=== PATIENT | female | born 1960 | race Caucasian/White ===

== ENCOUNTER 2017-10-14 02:31 | Inpatient (IN) | payer SELFPAY ==
[2017-10-14] VITALS (7 sets, daily range): BP systolic 105–182; BP diastolic 81–119; PULSE 61–74; RESP 18–20; TEMP 36.3–36.9; O2SAT 95–98; BMI 32.8
--- NOTE | 2017-10-14 02:40 | XR_ITS ---
XR chest 2V HISTORY: ITS.REASON: SOA ORDERING PHYSICIAN: Kingsley Stinson MD PATIENT AGE: 57 years COMPARISON: None available FINDINGS: Mild cardiomegaly without failure. No lobar consolidation or collapse. No acute bony anomalies. There are mild degenerative changes in the thoracic spine. IMPRESSION: Mild cardiomegaly otherwise negative
[2017-10-14 02:57] LABS: Basophils # 0.1 K/mm3 (0-0.2); Eosinophils # 0.3 K/mm3 (0.0-0.4); Eosinophils % 4.4 % (0.1-12.0); Hematocrit 45.6 % (37.0-47.0); Lymphocytes # 2.8 K/mm3 (0.7-4.5); Lymphocytes % 36.8 K/mm3 (10-50); Mean Corpuscular Hemoglobin 30.9 pg (27.0-31.2); Mean Corpuscular Volume 93.6 fl (81-99); Mean Platelet Volume 7.6 fl (7.4-10.4); Monocytes # 0.3 K/mm3 (0.1-1.0); Monocytes % 4.1 % (1.7-9.3); Neutrophils # 4.1 K/mm3 (1.8-7.8); Neutrophils % 53.6 % (37.0-80.0); Platelet Count 278 K/mm3 (142-424); Red Blood Count 4.87 M/mm3 (4.20-5.40); Red Cell Distribution Width 14.6 % (11.5-17.5); White Blood Count 7.6 K/mm3 (4.8-10.8)
[2017-10-14 03:20] LABS: Microscopic, Urine URINE MICROSCOPIC (MICROSCOPIC)
[2017-10-14 03:22] LABS: Appearance,Urine CLEAR (Clear); Bilirubin,Urine Negative (Negative); Blood, Urine Negative (Negative); Color,Urine YELLOW (Yellow); Glucose,Urine (UA) Negative (Negative); Ketones,Urine Negative (Negative); Leukocyte Esterase,Urine Negative (Negative); Nitrate,Urine Negative (Negative); PH,Urine 6.5 (5.0-8.5); Protein,Urine Negative (Negative); Urobilinogen,Urine 0.2 EU/dl (0.2)
[2017-10-14 03:24] LABS: Alanine Aminotransferase 71 U/L (12-78); Albumin Level 4.2 gm/dL (3.4-5.0); Albumin/Globulin Ratio 1.3 (1.1-1.8); Alkaline Phosphatase 108 U/L (46-116); Anion Gap 11.1 mEq/L (5-15); Aspartate Amino Transferase 78 U/L (15-37); Bilirubin,Total 0.4 mg/dL (0.2-1.0); Blood Urea Nitrogen 13 mg/dL (7-18); Calcium 8.7 mg/dL (8.5-10.1); Carbon Dioxide 29 mmol/L (21.0-32.0); Chloride 101 mmol/L (98-107); Creatinine Clearance Estimated 79 mL/min (0-300); Creatinine,Serum 1.18 mg/dL (0.55-1.02); Estimated Glomerular Filt Rate 47 ml/min (>60); GFR (African American) 57 ML/MIN (>60); Globulin 3.3 gm/dl (1.3-3.2); Glucose 104 mg/dL (74-106); Potassium 3.1 mmoL/L (3.5-5.1); Sodium 138 mmol/L (136-145); Total Protein,Serum 7.5 gm/dL (6.4-8.2); Troponin I < 0.02 ng/ml (0.00-0.06)
[2017-10-14 03:26] LABS: CKMB Relative Index 0.8 U/L (0-4.0); Creatine Kinase 2585 U/L (26-192)
[2017-10-14 03:28] LABS: Creatine Kinase MB 21.9 mg/ml (0.0-3.6)
--- NOTE | 2017-10-14 03:28 | PC.NURSE ---
LAB CALLED WITH CRITICAL RESULT, CK 1136. ADVISED.
[2017-10-14 03:39] LABS: WBC,Urine Occasional #/hpf (0-3)
[2017-10-14 03:40] LABS: Amorphous Sediment,Urine Trace /lpf
--- NOTE | 2017-10-14 03:43 | HMH.EDSOB ---
ED Disposition Clinical Impression: Hyperaldosteronism, Elevated CPK, Hypokalemia Hypothyroidism Qualifiers: Hypothyroidism type: unspecified Qualified Code(s): E03.9 - Hypothyroidism, unspecified Hypertension Qualifiers: Hypertension type: secondary to endocrine disorders Qualified Code(s): I15.2 - Hypertension secondary to endocrine disorders Disposition: Admitted As Inpatient Condition on Discharge: [facility] - Critical Care Critical Care Time: No Attestation: On 10/14/17, the high probability of a clinically significant, sudden or life threatening deterioration of the following system(s) required my full and direct attention, intervention and personal management. The time I documented below is in addition to time spent performing reported procedures but includes the following listed in this critical care notation. Medical Decision Making - Medical Records Medical records reviewed: Yes: I reviewed the patient's medical records. Vital Signs: 10/14/17 02:31 10/14/17 03:35 Temperature 97.8 F Temperature Source Oral Pulse Rate [Right Brachial] 74 68 Respiratory Rate 18 20 Blood Pressure [Right Arm] 182/119 151/108 Blood Pressure Mean [Right Arm] 140 122 Blood Pressure Source [Right Arm] Automatic Cuff Automatic Cuff Blood Pressure Position [Right Arm] Supine Sitting 02 Sat by Pulse Oximetry 98 97 Oxygen Delivery Method Room Air Room Air - Lab Data Lab results reviewed: Yes: I reviewed the patient's lab results. Lab Results 10/14/17 02:45: WBC 7.6, RBC 4.87, Hgb 15.0, Hct 45.6, MCV 93.6, MCH 30.9, MCHC 33.0, RDW 14.6, Plt Count 278, MPV 7.6, Neut % (Auto) 53.6, Lymph % (Auto) 36.8, [place] % (Auto) 4.1, Eos % (Auto) 4.4, Baso % (Auto) 1.0, Neut # (Auto) 4.1, Lymph # (Auto) 2.8, [place] # (Auto) 0.3, Eos # (Auto) 0.3, Baso # (Auto) 0.1 10/14/17 02:45: Sodium 138, Potassium 3.1 L, Chloride 101, Carbon Dioxide 29, Anion Gap 11.1, BUN 13, Creatinine 1.18 H, Estimated Creat Clear 79, Estimated GFR 47 L, Est GFR ( Amer) 57 L, Glucose 104, Calcium 8.7, Total Bilirubin 0.4, AST 78 H, ALT 71, Alkaline Phosphatase 108, Total Creatine Kinase 2585 H*, CK-MB (CK-2) 21.9 H*, CK-MB (CK-2) Rel Index 0.8, Troponin I < 0.02, Total Protein 7.5, Albumin 4.2, Globulin 3.3 H, Albumin/Globulin Ratio 1.3, TSH 125.01 H 10/14/17 02:45: B-Natriuretic Peptide 12 10/14/17 02:45: ESR 48 H 10/14/17 02:45: C-Reactive Protein < 0.2 10/14/17 02:45: TSH 110.77 H, Thyroxine (T4) < 0.5 L 10/14/17 03:10: Urine Color Yellow, Urine Appearance Clear, Urine pH 6.5, Ur Specific [place] 1.020, Urine Protein Negative, Urine Glucose (UA) Negative, Urine Ketones Negative, Urine Blood Negative, Urine Nitrate Negative, Urine Bilirubin Negative, Urine Urobilinogen 0.2, Ur Leukocyte Esterase Negative, Urine WBC Occasional, Amorphous Sediment Trace Result diagrams: 10/14/17 02:45 10/14/17 02:45 Orders (Tests/Meds): ED MEDICATIONS Generic Name Dose Route Start Last Admin Trade Name Freq PRN Reason Stop Dose Admin Levothyroxine Sodium 200 mcg 10/14/17 07:00 Synthroid 100mcg (0.1mg) Tablet PO 11/13/17 06:59 DAILYDM ANDREW Discontinued Medications Generic Name Dose Route Start Last Admin Trade Name Freq PRN Reason Stop Dose Admin Clonidine HCl 0.1 mg 10/14/17 05:08 Clonidine 0.1mg Tablet PO 10/14/17 05:09 ONCE ONE ORDERS Category Date Time Status Chest XR 2 view (NOT portable) [XR chest 2V] Stat Exams 10/14/17 02:40 Taken Aldosterone Stat Lab 10/14/17 04:53 Ordered Magnesium Stat Lab 10/14/17 02:45 Received Renin Stat Lab 10/14/17 04:53 Ordered - Radiology Data #1 Image(s): Chest Image Reviewed: Yes I reviewed the patient's radiology image Preliminary Findings: Normal/NAD - ECG Data Tracing #1 I reviewed this ECG and interpreted as documented below: Ischemic changes: non-specific ST-T wave changes - Physician Consults Physician Consulted: jesse Reason -: Admission - Neo
[2017-10-14 03:49] LABS: Thyroid Stimulating Hormone 125.01 uIU/ml (0.358-3.740)
[2017-10-14 04:00] LABS: C-Reactive Protein < 0.2 mg/L (0.0-0.9)
[2017-10-14 04:36] LABS: Erythrocyte Sedimentation Rate 48 mm/hr (0-30)
[2017-10-14 04:45] LABS: T4 (Thyroxine) < 0.5 ug/dl (4.7-13.3); Thyroid Stimulating Hormone 110.77 uIU/ml (0.358-3.740)
[2017-10-14 06:37] LABS: Chol/HDL Ratio 5.2 (1-3.5); Cholesterol 345 mg/dL (140-200); HDL Cholesterol 66 mg/dL (29-89); LDL Cholesterol 255 mg/dL (0-130); Phosphorous 3.3 mg/dL (2.4-4.9); Triglycerides 119 mg/dL (30-200); VLDL Cholesterol 24 mg/dL (0-40)
--- NOTE | 2017-10-14 10:46 | HMH.PHAVTE ---
[facility] Pharmacy VTE Monitoring - Patient Demographics Admission date: 10/14/17 Report Date: 10/14/17 Time: 10:47 Allergies/Adverse Reactions: Patient Allergies NO KNOWN ALLERGIES - NKA Allergy (Unknown, Uncoded 09/05/17 15:21) Height: 1.73 m Weight: 97.976 kg Patient Problems: Current Active Problems Hypothyroidism (Acute) Hyperaldosteronism (Acute) Hypertension (Acute) Elevated CPK (Acute) Hypokalemia (Acute) - VTE Risk Labs: VTE Related Lab Results Hgb 15.0 g/dL (12.2-16.2) 10/14/17 02:45 Hct 45.6 % (37.0-47.0) 10/14/17 02:45 Plt Count 278 K/mm3 (142-424) 10/14/17 02:45 BUN 13 mg/dL (7-18) 10/14/17 02:45 Creatinine 1.18 mg/dL (0.55-1.02) H 10/14/17 02:45 Estimated Creat Clear 79 mL/min (0-300) 10/14/17 02:45 Was VTE Risk Assessment Performed: Yes VTE Score: 4 VTE Risk Level: Low Risk - Prophylaxis VTE Prophylaxis Ordered?: Yes Types of VTE Prophylaxis: TEDS Knee High Location of Applied Device: Right Leg, Left Leg
--- NOTE | 2017-10-14 14:29 | HMH.HP ---
*Admission Date: 10/14/17 *Chief complaint: Weakness *History of present illness: 57 year old female presented to [facility] ER last night complaining of a 1 week history of progressively worse weakness and shortness of breath. She has a history of adrenal adenomas with hyperaldosteronism and hypothyroidism. Patient states she moved to [place] from [place] about 6 weeks ago and has been out of some of her medications for a few weeks. She denies chest pain and extremity edema. [facility] History Medical History: Reports:: Congestive Heart Failure ( Broken heart syndrome 2016 cath reportedly showed normal coronaries), Hypertension Denies:: Atherosclerotic Heart Disease, Diabetes Mellitus Type 2 Other Medical History: Reports: Hypothyroidism, Other (Hyperaldosteroneism, adrenal adenoma) - *Social History Smoking Status: Current every day smoker Tobacco Type: cigarettes Alcohol Intake: never Substance Use Type: other (history of narcotic addiction, none taken recently) Occupational Status: disabled - Psychiatric History Expresses thoughts of harming self/others: None Suicide Plan Description: No Plan *Family Hx:: No significant family history Review of Systems - Constitutional Reports fatigue - Eyes Denies blurry vision - ENT Denies bleeding gums, Denies change in voice - *Cardiovascular Denies chest pain - *Respiratory Denies cough - *Gastrointestinal Denies nausea, Denies vomiting - *Genitourinary Denies abnormal vaginal bleeding - *Musculoskeletal Denies joint pain - Integumentary/Breasts Denies rash - *Neurologic Denies dizziness, Denies seizure-like activity - Psychiatric Denies mood swings, Denies panic attacks - Endocrine Denies excessive sweating - Hematologic/Lymphatic Denies easy bleeding Meds Home Medications Medication Instructions Recorded Confirmed Type Amlodipine Besylate [Norvasc 5mg 5 mg PO DAILY 10/14/17 10/14/17 History tablet] Hydralazine HCl [Hydralazine HCl 25 mg PO TID 10/14/17 10/14/17 History 25mg Tablet] Ibuprofen [Ibuprofen 600mg Tab] 600 mg PO TID PRN 10/14/17 10/14/17 History Levothyroxine Sodium 175 mcg PO DAILY 10/14/17 10/14/17 History [Levothyroxine 175mcg (0.175mg) Tab] Potassium Chloride [Klor-Con 20 20 meq PO QID 10/14/17 10/14/17 History mEq Packet] Spironolactone [Spironolactone 25 mg PO DAILY 10/14/17 10/14/17 History 25mg Tab] cloNIDine HCl [cloNIDine 0.2mg 0.2 mg PO BID 10/14/17 10/14/17 History Tablet] Allergies Allergy/AdvReac Type Severity Reaction Status Date / Time NO KNOWN ALLERGIES - NKA Allergy Unknown Uncoded 09/05/17 15:21 Exam Vital signs and Labs for Last 24 Hours: Temp Pulse Resp BP Pulse Ox 98.4 F 64 20 124/89 98 10/14/17 07:43 10/14/17 07:43 10/14/17 07:43 10/14/17 07:43 10/14/17 07:43 Vital Signs Temp Pulse Resp BP Pulse Ox 10/14/17 07:43 98.4 F 64 20 124/89 98 10/14/17 06:56 97 10/14/17 03:35 68 20 151/108 97 10/14/17 02:31 97.8 F 74 18 182/119 98 Intake and Output 10/14/17 10/14/17 10/14/17 03:59 11:59 19:59 Other: Weight 216 lb 216 lb I & O for Last 24 hours: Intake & Output 10/12/17 10/13/17 10/14/17 10/15/17 11:59 11:59 11:59 11:59 Weight 216 lb - Constitutional no acute distress - *Routine HEENT Exam Head: Present: normocephalic Eye: Present: PERRL ENT: Present: mucous membranes moist - *Routine Neck Exam Present: supple, full ROM - *Routine Respiratory Exam Present: CTA bilaterally - *Routine Cardiovascular Exam Present: RRR - *Routine Abdominal Exam Present: soft, normoactive bowel sounds. Absent: tenderness - *Routine Extremities Exam Present: pulses intact H&P: Result - Labs Labs: Laboratory Results - last 24 hr 10/14/17 02:45: WBC 7.6, RBC 4.87, Hgb 15.0, Hct 45.6, MCV 93.6, MCH 30.9, MCHC 33.0, RDW 14.6, Plt Count 278, MPV 7.6, Neut % (Auto) 53.6, Lymph % (Auto) 36.8,
--- NOTE | 2017-10-14 14:32 | P.HP_ITS ---
*Admission Date: 10/14/17 *Chief complaint: Weakness *History of present illness: 57 year old female presented to [facility] ER last night complaining of a 1 week history of progressively worse weakness and shortness of breath. She has a history of adrenal adenomas with hyperaldosteronism and hypothyroidism. Patient states she moved to [place] from [place] about 6 weeks ago and has been out of some of her medications for a few weeks. She denies chest pain and extremity edema. [facility] History Medical History: Reports:: Congestive Heart Failure ( Broken heart syndrome 2016 cath reportedly showed normal coronaries), Hypertension Denies:: Atherosclerotic Heart Disease, Diabetes Mellitus Type 2 Other Medical History: Reports: Hypothyroidism, Other (Hyperaldosteroneism, adrenal adenoma) - *Social History Smoking Status: Current every day smoker Tobacco Type: cigarettes Alcohol Intake: never Substance Use Type: other (history of narcotic addiction, none taken recently) Occupational Status: disabled - Psychiatric History Expresses thoughts of harming self/others: None Suicide Plan Description: No Plan *Family Hx:: No significant family history Review of Systems - Constitutional Reports fatigue - Eyes Denies blurry vision - ENT Denies bleeding gums, Denies change in voice - *Cardiovascular Denies chest pain - *Respiratory Denies cough - *Gastrointestinal Denies nausea, Denies vomiting - *Genitourinary Denies abnormal vaginal bleeding - *Musculoskeletal Denies joint pain - Integumentary/Breasts Denies rash - *Neurologic Denies dizziness, Denies seizure-like activity - Psychiatric Denies mood swings, Denies panic attacks - Endocrine Denies excessive sweating - Hematologic/Lymphatic Denies easy bleeding Meds Home Medications Medication Instructions Recorded Confirmed Type Amlodipine Besylate [Norvasc 5mg 5 mg PO DAILY 10/14/17 10/14/17 History tablet] Hydralazine HCl [Hydralazine HCl 25 mg PO TID 10/14/17 10/14/17 History 25mg Tablet] Ibuprofen [Ibuprofen 600mg Tab] 600 mg PO TID PRN 10/14/17 10/14/17 History Levothyroxine Sodium 175 mcg PO DAILY 10/14/17 10/14/17 History [Levothyroxine 175mcg (0.175mg) Tab] Potassium Chloride [Klor-Con 20 20 meq PO QID 10/14/17 10/14/17 History mEq Packet] Spironolactone [Spironolactone 25 mg PO DAILY 10/14/17 10/14/17 History 25mg Tab] cloNIDine HCl [cloNIDine 0.2mg 0.2 mg PO BID 10/14/17 10/14/17 History Tablet] Allergies Allergy/AdvReac Type Severity Reaction Status Date / Time NO KNOWN ALLERGIES - NKA Allergy Unknown Uncoded 09/05/17 15:21 Exam Vital signs and Labs for Last 24 Hours: Temp Pulse Resp BP Pulse Ox 98.4 F 64 20 124/89 98 10/14/17 07:43 10/14/17 07:43 10/14/17 07:43 10/14/17 07:43 10/14/17 07:43 Vital Signs Temp Pulse Resp BP Pulse Ox 10/14/17 07:43 98.4 F 64 20 124/89 98 10/14/17 06:56 97 10/14/17 03:35 68 20 151/108 97 10/14/17 02:31 97.8 F 74 18 182/119 98 Intake and Output 10/14/17 10/14/17 10/14/17 03:59 11:59 19:59 Other: Weight 216 lb 216 lb I & O for Last 24 hours: Intake & Output 10/12/17 0
--- NOTE | 2017-10-15 03:07 | PC.NURSE ---
no changes noted from previous assessment,pt has slept intervals this shift, when pt is awake she appears very anxious and is often crying, breath sounds are diminished in the bases, otherwise clear, pt has maintained O2 sats above 90 on room air, pt states she is unable to catch her breath despite attempting to wear the nasal cannula, pt takes O2 on and off, bowel sounds are active x4, vss, no acute distress noted at this time, call light in reach, will continue to monitor.
[2017-10-15 04:00] VITALS: BP 106/64; PULSE 63; RESP 18; TEMP 36.7; O2SAT 96
[2017-10-15 07:18] LABS: Basophils # 0.1 K/mm3 (0-0.2); Basophils % 1.2 % (0.1-2.0); Eosinophils # 0.3 K/mm3 (0.0-0.4); Eosinophils % 4.2 % (0.1-12.0); Hemoglobin 12.9 g/dL (12.2-16.2); Lymphocytes # 2.5 K/mm3 (0.7-4.5); Lymphocytes % 41.2 K/mm3 (10-50); Mean Corpuscular Volume 93.9 fl (81-99); Mean Platelet Volume 8.2 fl (7.4-10.4); Monocytes # 0.3 K/mm3 (0.1-1.0); Monocytes % 4.1 % (1.7-9.3); Neutrophils % 49.3 % (37.0-80.0); Platelet Count 253 K/mm3 (142-424); Red Blood Count 4.16 M/mm3 (4.20-5.40); Red Cell Distribution Width 14.5 % (11.5-17.5); White Blood Count 6.1 K/mm3 (4.8-10.8)
[2017-10-15 07:22] LABS: Anion Gap 12.6 mEq/L (5-15); Blood Urea Nitrogen 13 mg/dL (7-18); Carbon Dioxide 26 mmol/L (21.0-32.0); Chloride 106 mmol/L (98-107); Creatinine Clearance Estimated 84 mL/min (0-300); Creatinine,Serum 1.11 mg/dL (0.55-1.02); Estimated Glomerular Filt Rate 50 ml/min (>60); GFR (African American) 61 ML/MIN (>60); Glucose 112 mg/dL (74-106); Potassium 3.6 mmoL/L (3.5-5.1); Sodium 141 mmol/L (136-145)
[2017-10-15 07:57] VITALS: BP 120/84; PULSE 60; RESP 20; TEMP 36.9; O2SAT 97
--- NOTE | 2017-10-15 08:30 | P.PN_ITS ---
Internal Medicine - PN: Subj *Date: 10/15/17 *Time: 08:27 Interval history: Patient with no new complaints today, she is still anxious about her health conditions and social situation. Exam Vital signs and Labs for Last 24 Hours: Temp Pulse Resp BP Pulse Ox 98.5 F 60 20 120/84 97 10/15/17 07:57 10/15/17 07:57 10/15/17 07:57 10/15/17 07:57 10/15/17 07:57 Laboratory Results - last 24 hr 10/15/17 06:35: WBC 6.1, RBC 4.16 L, Hgb 12.9, Hct 39.0, MCV 93.9, MCH 31.0, MCHC 33.0, RDW 14.5, Plt Count 253, MPV 8.2, Neut % (Auto) 49.3, Lymph % (Auto) 41.2, [place] % (Auto) 4.1, Eos % (Auto) 4.2, Baso % (Auto) 1.2, Neut # (Auto) 3.0 , Lymph # (Auto) 2.5, [place] # (Auto) 0.3, Eos # (Auto) 0.3, Baso # (Auto) 0.1 10/15/17 06:35: Sodium 141, Potassium 3.6, Chloride 106, Carbon Dioxide 26, Anion Gap 12.6, BUN 13, Creatinine 1.11 H, Estimated Creat Clear 84, Estimated GFR 50 L, Est GFR ( Amer) 61, Glucose 112 H Vital Signs Temp Pulse Pulse Resp BP Pulse Ox 10/15/17 07:57 98.5 F 60 20 120/84 97 10/15/17 04:00 98.1 F 63 18 106/64 96 10/14/17 20:00 97.3 F L 66 20 116/88 95 10/14/17 15:24 97.8 F 61 20 105/81 98 10/14/17 12:00 70 Intake and Output 10/14/17 10/15/17 10/15/17 19:59 03:59 11:59 Intake Total 1480 / 1480 240 / 240 Balance 1480 / 1480 240 / 240 Intake: Intake, Oral Amount 1480 / 1480 240 / 240 Other: Number of Voids 4 Number of Unmeasured Voids 1 I & O for Last 24 hours: Intake & Output 10/12/17 10/13/17 10/14/17 10/15/17 11:59 11:59 11:59 11:59 Intake Total 1720 / 1720 Balance 1720 / 1720 Weight 216 lb - Constitutional no acute distress - *Routine Respiratory Exam Present: CTA bilaterally - *Routine Cardiovascular Exam Present: RRR - *Routine Extremities Exam Absent: edema Assessment and Plan (1) Hypothyroidism Current visit: Yes Status: Acute Qualifiers: Hypothyroidism type: unspecified Qualified Code(s): E03.9 - Hypothyroidism , unspecified Category: Medical Code(s): E03.9 - Hypothyroidism, unspecified (2) Hyperaldosteronism Current visit: Yes Status: Acute Category: Medical Code(s): E26.9 - Hyperaldosteronism, unspecified (3) Hypertension Current visit: Yes Status: Acute Qualifiers: Hypertension type: secondary to endocrine disorders Qualified Code(s): I15.2 - Hypertension secondary to endocrine disorders Category: Medical Code(s): I10 - Essential (primary) hypertension (4) Hyperlipidemia Current visit: Yes Status: Acute Category: Medical Code(s): E78.5 - Hyperlipidemia, unspecified (5) Non-compliance Current visit: Yes Status: Acute Category: Medical Code(s): Z91.19 - Patient's noncompliance with other medical treatment and regimen (6) Elevated CPK Current visit: Yes Status: Acute Category: Medical Code(s): R74.8 - Abnormal levels of other serum enzymes (7) Hypokalemia Current visit: Yes Status: Resolved Category: Medical Code(s): E87.6 - Hypokalemia - Assessment and plan all Dx Assessment and Plan for all problems:: Plan discharge today. Patient to f/u in office in 2 weeks, encouraged her to take her medications everyday.
--- NOTE | 2017-10-16 14:35 | HMH.DCSUM ---
General - General Admission date: 10/14/17 Discharge date: 10/15/17 HPI HPI: 57 year old female presented to [facility] ER last night complaining of a 1 week history of progressively worse weakness and shortness of breath. She has a history of adrenal adenomas with hyperaldosteronism and hypothyroidism. Patient states she moved to [place] from [place] about 6 weeks ago and has been out of some of her medications for a few weeks. She denies chest pain and extremity edema. Objective Vital signs: Temp Pulse Resp BP Pulse Ox 98.5 F 60 20 120/84 97 10/15/17 07:57 10/15/17 07:57 10/15/17 07:57 10/15/17 07:57 10/15/17 07:57 Narrative: - Constitutional no acute distress - *Routine HEENT Exam Head: Present: normocephalic Eye: Present: PERRL ENT: Present: mucous membranes moist - *Routine Neck Exam Present: supple, full ROM - *Routine Respiratory Exam Present: CTA bilaterally - *Routine Cardiovascular Exam Present: RRR - *Routine Abdominal Exam Present: soft, normoactive bowel sounds. Absent: tenderness - *Routine Extremities Exam Present: pulses intact Hospital Course Hospital Course: Her potassium was low and was replaced. Her Levothyroxine and Spironolactone were resumed. The patient improved, as did her labs. She was stable to be discharged home and will f/u in the office of A in 2 weeks. She was encouraged to take her medications daily. DS: Diagnosis - Discharge Diagnosis (1) Elevated CPK Status: Acute (2) Hyperaldosteronism Status: Acute (3) Hyperlipidemia Status: Acute (4) Hypertension Status: Acute (5) Hypothyroidism Status: Acute (6) Non-compliance Status: Acute (7) Hypokalemia Status: Resolved Meds Home Medications Medication Instructions Recorded Confirmed Type Amlodipine Besylate [Norvasc 5mg 5 mg PO DAILY 10/14/17 10/14/17 History tablet] Hydralazine HCl [Hydralazine HCl 25 mg PO TID 10/14/17 10/14/17 History 25mg Tablet] Ibuprofen [Ibuprofen 600mg Tab] 600 mg PO TID PRN 10/14/17 10/14/17 History Potassium Chloride [Klor-Con 20 20 meq PO QID 10/14/17 10/14/17 History mEq Packet] Spironolactone [Spironolactone 25 mg PO DAILY 10/14/17 10/14/17 History 25mg Tab] cloNIDine HCl [cloNIDine 0.2mg 0.2 mg PO BID 10/14/17 10/14/17 History Tablet] Allergies Allergy/AdvReac Type Severity Reaction Status Date / Time NO KNOWN ALLERGIES - NKA Allergy Unknown Uncoded 09/05/17 15:21 Discharge Plan - Patient Discharge Instructions ACTIVITY: Continue current activity DIET: continue same diet - Follow up Plan Follow up with: Epi Gonzalez MD [Staff Physician] - 2 weeks Disposition: Home, Self-Prison Medications: Home Medications Medication Instructions Recorded Confirmed Type Amlodipine Besylate [Norvasc 5mg 5 mg PO DAILY 10/14/17 10/14/17 History tablet] Hydralazine HCl [Hydralazine HCl 25 mg PO TID 10/14/17 10/14/17 History 25mg Tablet] Ibuprofen [Ibuprofen 600mg Tab] 600 mg PO TID PRN 10/14/17 10/14/17 History Potassium Chloride [Klor-Con 20 20 meq PO QID 10/14/17 10/14/17 History mEq Packet] Spironolactone [Spironolactone 25 mg PO DAILY 10/14/17 10/14/17 History 25mg Tab] cloNIDine HCl [cloNIDine 0.2mg 0.2 mg PO BID 10/14/17 10/14/17 History Tablet] Prescriptions/Medication Reconciliation: New hydrOXYzine HCl [Hydroxyzine HCl] 25 mg PO Q6HP PRN #30 tab PRN Reason: Anxiety Continue Spironolactone [Spironolactone 25mg Tab] 25 mg PO DAILY Amlodipine Besylate [Norvasc 5mg tablet] 5 mg PO DAILY Hydralazine HCl [Hydralazine HCl 25mg Tablet] 25 mg PO TID cloNIDine HCl [cloNIDine 0.2mg Tablet] 0.2 mg PO BID Ibuprofen [Ibuprofen 600mg Tab] 600 mg PO TID PRN PRN Reason: PAIN Potassium Chloride [Klor-Con 20 mEq Packet] 20 meq PO QID Changed Levothyroxine Sodium [Levothyroxine 175mcg (0.175mg) Tab] 200 mcg PO DAILY #30 tab
--- NOTE | 2017-10-16 14:39 | P.DS_ITS ---
General - General Admission date: 10/14/17 Discharge date: 10/15/17 HPI HPI: 57 year old female presented to [facility] ER last night complaining of a 1 week history of progressively worse weakness and shortness of breath. She has a history of adrenal adenomas with hyperaldosteronism and hypothyroidism. Patient states she moved to [place] from [place] about 6 weeks ago and has been out of some of her medications for a few weeks. She denies chest pain and extremity edema. Objective Vital signs: Temp Pulse Resp BP Pulse Ox 98.5 F 60 20 120/84 97 10/15/17 07:57 10/15/17 07:57 10/15/17 07:57 10/15/17 07:57 10/15/17 07:57 Narrative: - Constitutional no acute distress - *Routine HEENT Exam Head: Present: normocephalic Eye: Present: PERRL ENT: Present: mucous membranes moist - *Routine Neck Exam Present: supple, full ROM - *Routine Respiratory Exam Present: CTA bilaterally - *Routine Cardiovascular Exam Present: RRR - *Routine Abdominal Exam Present: soft, normoactive bowel sounds. Absent: tenderness - *Routine Extremities Exam Present: pulses intact Hospital Course Hospital Course: Her potassium was low and was replaced. Her Levothyroxine and Spironolactone were resumed. The patient improved, as did her labs. She was stable to be discharged home and will f/u in the office of A in 2 weeks. She was encouraged to take her medications daily. DS: Diagnosis - Discharge Diagnosis (1) Elevated CPK Status: Acute (2) Hyperaldosteronism Status: Acute (3) Hyperlipidemia Status: Acute (4) Hypertension Status: Acute (5) Hypothyroidism Status: Acute (6) Non-compliance Status: Acute (7) Hypokalemia Status: Resolved Meds Home Medications Medication Instructions Recorded Confirmed Type Amlodipine Besylate [Norvasc 5mg 5 mg PO DAILY 10/14/17 10/14/17 History tablet] Hydralazine HCl [Hydralazine HCl 25 mg PO TID 10/14/17 10/14/17 History 25mg Tablet] Ibuprofen [Ibuprofen 600mg Tab] 600 mg PO TID PRN 10/14/17 10/14/17 History Potassium Chloride [Klor-Con 20 20 meq PO QID 10/14/17 10/14/17 History mEq Packet] Spironolactone [Spironolactone 25 mg PO DAILY 10/14/17 10/14/17 History 25mg Tab] cloNIDine HCl [cloNIDine 0.2mg 0.2 mg PO BID 10/14/17 10/14/17 History Tablet] Allergies Allergy/AdvReac Type Severity Reaction Status Date / Time NO KNOWN ALLERGIES - NKA Allergy Unknown Uncoded 09/05/17 15:21 Discharge Plan - Patient Discharge Instructions ACTIVITY: Continue current activity DIET: continue same diet - Follow up Plan Follow up with: Epi Gonzalez MD [Staff Physician] - 2 weeks Disposition: Home, Self-[facility] Medications: Home Medications Medication Instructions Recorded Confirmed Type Amlodipine Besylate [Norvasc 5mg 5 mg PO DAILY 10/14/17 10/14/17 History tablet] Hydralazine HCl [Hydralazine HCl 25 mg PO TID 10/14/17 10/14/17 History 25mg Tablet] Ibuprofen [Ibuprofen 600mg Tab] 600 mg PO TID PRN 10/14/17 10/14/17 History Potassium Chloride [Klor-Con 20 20 meq PO QID 10/14/17 10/14/17 History mEq Packet] Spironolactone [Spironolactone 25 mg PO DAILY 10/14/17 10/14/17 History
[2017-10-20 10:48] LABS: Renin Activity, Plasma 0.184 ng/mL/hr (0.167-5.380)
== END 2017-10-15 12:00 | disposition home or self-care (01) | DRG 641 ==
LOC: ER 03:10 → 2ND 05:18
PROVIDERS: Admitting Provider Family Medicine; Emergency Provider Emergency Medicine; Visit Provider Family Medicine
DX: E87.6 Hypokalemia (principal); I15.2 Hypertension secondary to endocrine disorders; I11.0 Hypertensive heart disease with heart failure; I50.9 Heart failure, unspecified; E26.9 Hyperaldosteronism, unspecified; D35.00 Benign neoplasm of unspecified adrenal gland; F17.210 Nicotine dependence, cigarettes, uncomplicated; F19.11 Other psychoactive substance abuse, in remission; R74.8 Abnormal levels of other serum enzymes; E78.5 Hyperlipidemia, unspecified; Z79.899 Other long term (current) drug therapy; Z91.14 Patient's other noncompliance with medication regimen
CPT/HCPCS: 71046; 80048; 80053; 80061; 81001; 82088; 82550; 82553; 83735; 83880; 84100; 84244; 84436; 84443; 84484; 85025; 85651; 86140; 93005; 93041; 99283

== ENCOUNTER → 2017-11-27 10:21 | Outpatient (REF) | payer SELFPAY ==
[2017-11-27 13:28] LABS: Basophils % 0.6 % (0.1-2.0); Eosinophils # 0.4 K/mm3 (0.0-0.4); Eosinophils % 5.9 % (0.1-12.0); Hematocrit 41.5 % (37.0-47.0); Hemoglobin 13.6 g/dL (12.2-16.2); Lymphocytes # 1.5 K/mm3 (0.7-4.5); Lymphocytes % 21.6 K/mm3 (10-50); Mean Corpuscular HGB Conc 32.7 g/dL (31.8-35.4); Mean Corpuscular Hemoglobin 31.9 pg (27.0-31.2); Mean Corpuscular Volume 97.6 fl (81-99); Mean Platelet Volume 8.8 fl (7.4-10.4); Monocytes # 0.5 K/mm3 (0.1-1.0); Monocytes % 7.9 % (1.7-9.3); Neutrophils # 4.4 K/mm3 (1.8-7.8); Platelet Count 263 K/mm3 (142-424); Red Blood Count 4.25 M/mm3 (4.20-5.40); Red Cell Distribution Width 12.7 % (11.5-17.5); White Blood Count 6.9 K/mm3 (4.8-10.8)
[2017-11-27 13:44] LABS: Alanine Aminotransferase 30 U/L (12-78); Albumin Level 3.5 gm/dL (3.4-5.0); Albumin/Globulin Ratio 1.1 (1.1-1.8); Alkaline Phosphatase 117 U/L (46-116); Anion Gap 10.4 mEq/L (5-15); Aspartate Amino Transferase 13 U/L (15-37); Blood Urea Nitrogen 12 mg/dL (7-18); Calcium 8.5 mg/dL (8.5-10.1); Carbon Dioxide 30 mmol/L (21.0-32.0); Chloride 108 mmol/L (98-107); Cholesterol 144 mg/dL (140-200); Creatinine,Serum 0.93 mg/dL (0.55-1.02); Estimated Glomerular Filt Rate 62 ml/min (>60); GFR (African American) 75 ML/MIN (>60); Globulin 3.1 gm/dl (1.3-3.2); Glucose 100 mg/dL (74-106); HDL Cholesterol 24 mg/dL (29-89); LDL Cholesterol 82 mg/dL (0-130); Potassium 4.4 mmoL/L (3.5-5.1); Sodium 144 mmol/L (136-145); Thyroid Stimulating Hormone 0.09 uIU/ml (0.358-3.740); Total Protein,Serum 6.6 gm/dL (6.4-8.2); Triglycerides 190 mg/dL (30-200); VLDL Cholesterol 38 mg/dL (0-40)
[2017-11-27 14:12] LABS: Hemoglobin A1C 5.3 % (0.0-7.0)
[2017-12-01 14:50] LABS: Vitamin D 25 Hydroxy 14.7 ng/mL (30.0-100.0)
== END ==
LOC: LAB 10:21
PROVIDERS: Visit Provider Nurse Practitioner Family
DX: R53.83 Other fatigue (principal)
CPT/HCPCS: 80053; 80061; 82652; 83036; 84439; 84443; 85025

== ENCOUNTER → 2018-03-01 15:37 | Outpatient (REF) | payer BC, SELFPAY ==
[2018-03-01 18:55] LABS: Basophils # 0.1 K/mm3 (0-0.2); Basophils % 0.7 % (0.1-2.0); Eosinophils # 0.4 K/mm3 (0.0-0.4); Eosinophils % 4.5 % (0.1-12.0); Hematocrit 52.4 % (37.0-47.0); Hemoglobin 16.4 g/dL (12.2-16.2); Lymphocytes # 2.5 K/mm3 (0.7-4.5); Lymphocytes % 30.4 K/mm3 (10-50); Mean Corpuscular HGB Conc 31.2 g/dL (31.8-35.4); Mean Corpuscular Hemoglobin 29.1 pg (27.0-31.2); Mean Corpuscular Volume 93.1 fl (81-99); Mean Platelet Volume 8.1 fl (7.4-10.4); Monocytes # 0.5 K/mm3 (0.1-1.0); Monocytes % 6.5 % (1.7-9.3); Neutrophils # 4.7 K/mm3 (1.8-7.8); Neutrophils % 57.9 % (37.0-80.0); Platelet Count 362 K/mm3 (142-424); Red Blood Count 5.63 M/mm3 (4.20-5.40); Red Cell Distribution Width 12.6 % (11.5-17.5); White Blood Count 8.1 K/mm3 (4.8-10.8)
[2018-03-01 18:58] LABS: Alanine Aminotransferase 26 U/L (12-78); Albumin/Globulin Ratio 1.1 (1.1-1.8); Alkaline Phosphatase 117 U/L (46-116); Anion Gap 12.5 mEq/L (5-15); Aspartate Amino Transferase 18 U/L (15-37); Bilirubin,Total 0.4 mg/dL (0.2-1.0); Blood Urea Nitrogen 9 mg/dL (7-18); Calcium 9.5 mg/dL (8.5-10.1); Carbon Dioxide 29 mmol/L (21.0-32.0); Chloride 105 mmol/L (98-107); Chol/HDL Ratio 7.6 (1-3.5); Cholesterol 282 mg/dL (140-200); Creatinine,Serum 0.88 mg/dL (0.55-1.02); Estimated Glomerular Filt Rate 66 ml/min (>60); Free T4 (Free Thyroxine) 1.41 ng/dl (0.76-1.46); GFR (African American) 80 ML/MIN (>60); Globulin 3.7 gm/dl (1.3-3.2); Glucose 84 mg/dL (74-106); HDL Cholesterol 37 mg/dL (29-89); LDL Cholesterol 209 mg/dL (0-130); Potassium 4.5 mmoL/L (3.5-5.1); Sodium 142 mmol/L (136-145); Thyroid Stimulating Hormone 1.01 uIU/ml (0.358-3.740); Total Protein,Serum 7.7 gm/dL (6.4-8.2); Triglycerides 180 mg/dL (30-200); VLDL Cholesterol 36 mg/dL (0-40)
[2018-03-03 16:59] LABS: Vitamin D 25 Hydroxy 28.2 ng/mL (30.0-100.0)
== END ==
LOC: LAB 15:37
PROVIDERS: Visit Provider Nurse Practitioner Family
DX: I10 Essential (primary) hypertension (principal); R06.02 Shortness of breath; R53.83 Other fatigue
CPT/HCPCS: 80053; 80061; 82652; 84439; 84443; 85025

== ENCOUNTER → 2018-04-04 07:12 | Outpatient (CLI) | payer BC, SELFPAY ==
--- NOTE | 2018-04-04 07:14 | CA_ITS ---
PROCEDURE: 2-D M-mode and color Doppler study INDICATIONS FOR THE TEST: Chest pain COPD Heart Murmur Tobacco SmokingX PalpitationsX FatigueX Syncope Edema HypertensionXDiabetes Mellitus Rheumatic Fever SOBXDOE Obesity HyperlipidemiaXX Family History HD Additional History TAKOTSU[place] CM 2014 PATIENT INFORMATION HEIGHT: 68 WEIGHT:214 GENDER: Female B/P:120/75 2-D/M-MODE INTERPRETATION: 2-D MEASUREMENTS OBSERVED VALUES IN CMS Right Ventricular Dimension (RVDd) 2.4 Interventricular Septum (Thickness)(IVsd) .9 Left Ventricular Internal Dimensions(LVIDd) 5.4 Left Ventricular Posterior Wall (Thickness)(LVPWd) 1.2 Aortic Root 3.4 Aortic Cusp Separation 2.1 Left Atrial Dimensions (LAD) 3.1 2D 1. Left atrium is qualitatively mildly enlarged, left ventricle is normal size, mild concentric left ventricular hypertrophy, visually estimated ejection fraction 55% with no obvious regional wall motion abnormality. 2. The right atrium and right ventricle are normal size and contractility. 3. The aortic valve is minimally thickened and fibrosed. 4. The mitral and tricuspid valvular grossly normal. 5. The pulmonic valve is poorly visualized. 6. No significant pericardial effusion noted. DOPPLER INTERROGATION: Doppler interrogation of the aortic, mitral and tricuspid valvular presence of mild mitral and tricuspid regurgitation, tricuspid and jet velocity is insufficient for admission of the right ventricular systolic pressure, grade 1 diastolic dysfunction seen without tissue Doppler evidence of raised left atrial pressure. CONCLUSION: 1. Mildly enlarged left atrium, normal left ventricular size, mild concentric left ventricular hypertrophy, visually estimated ejection fraction 55% with no obvious regional wall motion abnormality, grade 1 diastolic dysfunction seen without tissue Doppler evidence of raised left atrial pressure. 2. Mild mitral and tricuspid regurgitation 3. No significant pericardial effusion noted.
--- NOTE | 2018-04-04 07:14 | NM_ITS ---
History and Indications: Hypertension, hyperlipidemia, chronic tobacco use, family history, shortness of breath, palpitations and fatigue Procedure: Patient received a 0.4 mg of Lexiscan, resting heart rate was 61 bpm, resting blood pressure 126/87, with Lexiscan maximum heart rate achieved was 101 bpm which is less than 85% of the maximum predicted heart rate and a blood pressure was 129/82. With Lexiscan complaint of shortness of breath nausea and headache. Electrocardiogram: Resting electrocardiogram showed sinus rhythm, with Lexiscan there is less than 1.[address] segment depression noted from the baseline EKG. The EKG portion of the Lexiscan Myoview is nondiagnostic. Cardiac stress and resting SPECT images: Cardiac stress and resting SPECT images were obtained using technetium 99 Myoview 31.1 mCi at stress and an 10.0 mCi at rest, gated SPECT further analysis of segmental wall motion and calculation of the ejection fraction also done. Cardiac stress and rest SPECT images show uniform myocardial activity without any segmental perfusion abnormality, computer derived ejection fraction is 57% with no obvious regional wall motion abnormality, right ventricle is normal size and contractility. Conclusion: 1. The EKG portion of the Lexiscan Myoview is nondiagnostic. 2. No obvious scintigraphic evidence of reversible ischemia seen, either derived ejection fraction is 57 percent with no obvious regional wall motion abnormality, right ventricle is normal size and contractility. 3. Normal Lexiscan Myoview study.
--- NOTE | 2018-04-04 09:27 | HMH.ITSHM ---
potachloride er hydralazine clonidine levothyroxine amlodipine spironolactone vit d3 hydroxyzine hcl
== END ==
PROVIDERS: PCP Nurse Practitioner Family; Visit Provider Internal Medicine Cardiovascular Disease
DX: I50.9 Heart failure, unspecified (principal); I10 Essential (primary) hypertension
CPT/HCPCS: 78452; 93017; 93306; A9502; J2785

== ENCOUNTER → 2018-05-01 15:45 | Outpatient (CLI) | payer BC, SELFPAY ==
--- NOTE | 2018-05-01 15:49 | XR_ITS ---
XR foot LT min 3V HISTORY: ITS.REASON: Foot Pain ORDERING PHYSICIAN: Stephani Vallejo PATIENT AGE: 57 years COMPARISON: None FINDINGS: No fracture or dislocation. No lytic or blastic change. There is normal mineralization.. Osteoarthritic changes are present at the first and second metatarsal tarsal junction with mild bony hypertrophic change. Otherwise negative. IMPRESSION: Osteoarthritic change first and second metatarsal tarsal junction
--- NOTE | 2018-05-01 15:49 | XR_ITS ---
EXAM: XR cervical spine 5V HISTORY: ITS.REASON: pain ORDERING PHYSICIAN: Stephani Vallejo PATIENT AGE: 57 years COMPARISON: None FINDINGS: Normal alignment. No fracture or dislocation. There is degenerative disc disease at C5-C6 and C6-C7 with small anterior osteophytes. No significant foraminal narrowing. Incidental carotid artery calcification is present. IMPRESSION: 1. Cervical spondylosis with degenerative disc disease 2. Carotid artery calcification suggesting carotid artery disease
--- NOTE | 2018-05-01 15:49 | XR_ITS ---
EXAM: XR lumbar spine 2-3V HISTORY: ITS.REASON: pain ORDERING PHYSICIAN: Stephani Vallejo PATIENT AGE: 57 years COMPARISON: None FINDINGS: Normal alignment. No fracture or dislocation. Degenerative disc disease is present at L5-S1. Mild degenerative disc disease at L4-L5. No lytic or blastic change. Multilevel lumbar endplate osteophytes are present from L1 to L5 best detected on the oblique views IMPRESSION: Lumbar spondylosis with degenerative disc disease and endplate osteophytes as described above
--- NOTE | 2018-05-01 15:49 | XR_ITS ---
EXAM: XR thoracic spine 3V HISTORY: ITS.REASON: pain Comparison: 10/14/2017 FINDINGS: There is normal alignment. There is mild multilevel degenerative disc disease in the mid and lower thoracic spine with bridging anterior osteophytes. No acute fracture or dislocation. No lytic or blastic change. IMPRESSION: Thoracic spondylosis with degenerative disc disease and osteophytosis
== END ==
PROVIDERS: PCP Nurse Practitioner Family; Visit Provider Nurse Practitioner Family
DX: M51.36 Other intervertebral disc degeneration, lumbar region (principal); M51.34 Other intervertebral disc degeneration, thoracic region; M47.812 Spondylosis without myelopathy or radiculopathy, cervical region; M79.672 Pain in left foot
CPT/HCPCS: 72050; 72072; 72100; 73630

== ENCOUNTER 2018-05-30 11:25 | Observation (INO) ==
--- NOTE | 2018-05-30 11:29 | Emergency Department Note ---
ED Disposition Clinical Impression: Hypokalemia, Hypertension, uncontrolled Abdominal pain Qualifiers: Abdominal location: generalized Qualified Code(s): R10.84 - Generalized abdominal pain Vomiting Qualifiers: Vomiting type: unspecified Vomiting Intractability: intractable Nausea presence: with nausea Qualified Code(s): R11.2 - Nausea with vomiting, unspecified Headache Qualifiers: Headache type: unspecified Headache chronicity pattern: acute headache Intractability: intractable Qualified Code(s): R51 - Headache Disposition: Still a Patient Condition on Discharge: Fair Referrals: Stephani Vallejo APRN [Primary Care Provider] - - Critical Care Critical Care Time: No Attestation: On , the high probability of a clinically significant, sudden or life threatening deterioration of the following system(s) required my full and direct attention, intervention and personal management. The time I documented below is in addition to time spent performing reported procedures but includes the following listed in this critical care notation. Medical Decision Making - Neo Inquiry Pt receiving controlled substance: Yes Neo was queried for this patient: No Reason not queried -: Emergent pt cond-no time Risks and benefits of using a controlled substance: were not discussed with pt by me Vital Signs: 05/30/18 11:25 05/30/18 11:26 05/30/18 12:08 Temperature 98.2 F Temperature Source Oral Pulse Rate [Right Brachial] 73 72 Respiratory Rate 20 18 Blood Pressure [Right Arm] 230/130 197/107 200/120 Blood Pressure Mean [Right Arm] 163 137 146 Blood Pressure Source [Right Arm] Automatic Cuff Automatic Cuff Manual Cuff/ Doppler Blood Pressure Position [Right Arm] Sitting Sitting Sitting 02 Sat by Pulse Oximetry 95 97 Oxygen Delivery Method Room Air 05/30/18 13:31 Temperature Temperature Source Pulse Rate [Right Brachial] 63 Respiratory Rate Blood Pressure [Right Arm] 155/95 Blood Pressure Mean [Right Arm] 115 Blood Pressure Source [Right Arm] Automatic Cuff Blood Pressure Position [Right Arm] Sitting 02 Sat by Pulse Oximetry 94 L Oxygen Delivery Method Room Air - Lab Data Lab Results 05/30/18 11:30: WBC 9.4, RBC 5.49 H, Hgb 16.3 H, Hct 48.5 H, MCV 88.3, MCH 29.8, MCHC 33.7, RDW 13.2, Plt Count 398, MPV 7.1 L, Neut % (Auto) 73.5, Lymph % (Auto) 18.0, Delta % (Auto) 5.1, Eos % (Auto) 2.7, Baso % (Auto) 0.6, Neut # (Auto) 6.9, Lymph # (Auto) 1.7, Delta # (Auto) 0.5, Eos # (Auto) 0.3, Baso # (Auto) 0.1 05/30/18 11:30: Sodium 145, Potassium 2.4 L*, Chloride 104, Carbon Dioxide 30, Anion Gap 13.4, BUN 7, Creatinine 0.87, Estimated Creat Clear 107, Estimated GFR 67, Est GFR ( Amer) 81, Glucose 130 H, Calcium 8.8, Troponin I < 0.02, TSH 0.03 L D, Free T4 Index 5.6 L, Thyroxine (T4) 15.6 H, T3 Uptake 36 05/30/18 11:30: Lipase 151 05/30/18 14:15: Urine Color Yellow, Urine Appearance Clear, Urine pH 6.5, Ur Specific [place] 1.015, Urine Protein Negative, Urine Glucose (UA) Negative, Urine Ketones Negative, Urine Blood Negative, Urine Nitrate Negative, Urine Bilirubin Negative, Urine Urobilinogen 1.0, Ur Leukocyte Esterase Negative, Urine RBC Occasional, Urine WBC Occasional, Ur Squamous Epith Cells 5-10, Urine Bacteria Trace, Urine Mucus 2+ Result diagrams: 05/30/18 11:30 05/30/18 11:30 Orders (Tests/Meds): ED MEDICATIONS Generic Name Dose Route Start Last Admin Trade Name Freq PRN Reason Stop Dose Admin Sodium Chloride 1,000 mls @ 100 mls/hr 05/30/18 11:45 05/30/18 12:00 Sod Chlor 0.9% 1000ml Bag IV 06/29/18 11:44 100 mls/hr .Q10H ANDREW Administration Discontinued Medications Generic Name Dose Route Start Last Admin Trade Name Freq PRN Reason Stop Dose Admin Clonidine HCl 0.2 mg 05/30/18 11:36 05/30/18 11:59 Clonidine 0.2mg Tablet PO 05/30/18 11:37 0.2 mg ONCE ONE Administration Hydralazine HCl 5 mg 05/30/18 15:25 Apresoline 20mg/Ml 1ml Vial IV 05/30/18 15:26 ONCE ONE Morphine Sulfate 4 mg 05/30/18 11:36 05/30/18 12:00 Morphine 4mg/Ml Syringe IV 05/30/18 11:37 Not Given ONCE ONE Ondansetron HCl 4 mg 05/30/18 11:36 05/30/18 11:59 Zofran 4mg/2ml Vial IV 05/30/18 11:37 4 mg ONCE ONE Administration Potassium Chloride 60 meq 05/30/18 12:07 05/30/18 13:38 Klor-Con 20meq Tablet PO 05/30/18 12:08 60 meq ONCE ONE Administration ORDERS Category Date Time Status Urinalysis and Microscopic Stat Lab 05/30/18 14:15 Ordered - Radiology Data #1 Image(s): Chest Image Reviewed: Yes I reviewed the patient's radiology image Preliminary Findings: Normal/NAD - CT Data CT Scan: Head, Abdomen, Pelvis Time Received: 14:[address] Reviewed: Yes: I have viewed the radiologist's interpretation Findings Narrative: Head: IMPRESSION: 1. No acute intracranial findings. 2. 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 No acute abdominal or pelvic findings. 2. Probable right adrenal adenoma 3. Indeterminate 11 mm nodule in the right lower lobe. Consider outpatient chest CT without and with contrast for further evaluation. Dictated By: Gelacio Shah MD Signed By: <Electronically signed by Gelacio Shah MD in OV> 05/30/18 1435 - ECG Data Tracing #1 EKG interpreted by Serafin Blue MD: Rhythm: sinus Rate: 62 Apison: Left Ectopy: none Conduction: normal ST Segment Changes: Inferior and lateral depression. Compared to prior EKG 10/14/17, ST depression is worse. T Wave Changes: none Q Waves: V1 and V2 - Physician Consults Physician Consulted: Pradeep Cid NP for Dr. Stinson Time: 15:40 Reason -: Admission Comment/Response: Agrees to admit the patient to the hospital. We discussed the patient's clinical information, including history, exam, laboratory and radiology results and ED course. Per hospital procedure, I will write temporary bridge inpatient orders on the patient. Specific orders requested by the admitting physician: Resume usual blood pressure medicines, IV fluids with potassium, recheck labs in the morning General Adult HPI - General Chief complaint: Arrhythmia/Palpitations Stated complaint: irreg heart beat Time Seen by Provider: 05/30/18 11:28 - History of Present Illness HPI narrative: States complaints of high blood pressure, vomiting, abdominal pain. Has been out of her medication for 3 days because of some sort of insurance issue. Out of all medication except potassium. States blood pressure overnight was running 190s over 120s. Has had vomiting all night long and today. States she has a bowel movement every time she vomits, but it is formed, not diarrhea. Abdominal pain is generalized. Denies fever. Urinary frequency, but no other urinary symptoms. Denies chest pain or shortness of breath. Has extrasystoles for years, states it is unchanged presently. Has had a bad headache for 3 days. Location: buttocks - Related Data Previous Rx's Medication Instructions Recorded ibuprofen 600 mg tablet 600 mg PO TID PRN #90 tab 11/27/17 spironolactone 25 mg tablet 25 mg PO DAILY #90 tab 11/27/17 cholecalciferol (vitamin D3) 5,000 5,000 unit PO DAILY #30 cap 03/08/18 unit capsule ergocalciferol (vitamin D2) 50,000 50,000 unit PO QWEEK #4 cap 03/08/18 unit capsule bupropion HCl SR 150 mg tablet,12 150 mg PO BID #60 tab 04/05/18 hr sustained-release losartan 100 1 tab PO DAILY #30 tab 04/05/18 mg-hydrochlorothiazide 25 mg tablet nicotine 14 mg/24 hr daily 1 patch TRANSDERMA Q24H #14 each 04/05/18 transdermal patch nicotine 21 mg/24 hr daily 1 patch TRANSDERMA Q24H #14 each 04/05/18 transdermal patch nicotine 7 mg/24 hr daily 1 patch TRANSDERMA Q24H #14 each 04/05/18 transdermal patch amlodipine 5 mg tablet 5 mg PO DAILY #30 tab 05/29/18 clonidine HCl 0.2 mg tablet 0.2 mg PO BID #180 tab 05/29/18 hydralazine 25 mg tablet 25 mg PO TID #90 tab 05/29/18 hydroxyzine HCl 25 mg tablet 25 mg PO TID PRN #90 tab 05/29/18 levothyroxine 175 mcg tablet 175 mcg PO DAILY #30 tab 05/29/18 potassium chloride ER 20 mEq 20 meq PO QID #120 tab 05/29/18 tablet,extended release Allergies Allergy/AdvReac Type Severity Reaction Status Date / Time NO KNOWN ALLERGIES - NKA Allergy Unknown Uncoded 04/05/18 10:56 [facility] History I have reviewed the patient's past medical history: Yes Medical History: Reports:: Anxiety, Congestive Heart Failure, Depression, Hypertension Denies:: Atherosclerotic Heart Disease, Diabetes Mellitus Type 2 Other Medical History: Reports: Arthritis, Hypothyroidism, Other Comment: CHONS SYNDROME,BALANCE ISSUES Other Surgeries: Yes: Cardiac Catheterization, Cholecystectomy, Amputation: No Fractures: No Comment: LAPCOLY, REBUILT ARCH IN RIGHT FOOT - Social History Smoking Status: Current every day smoker Tobacco Type: cigarettes # Packs/Day (cigarettes): 1 #Yrs smoked (if former smoker): 40 Alcohol Intake: never Alcohol Intake Frequency:: other Substance Use Type: denies use Occupational Status: disabled Housing: house Household Members: family - Psychiatric History Pschychiatric History:: Reports:: Anxiety, Depression Family Hx:: Hypertension, Diabetes, Coronary Artery Disease Comment: HEART DISEASE ROS Obtained: Yes All systems reviewed & no additional complaints - Constitutional Constitutional: Denies fever(s) - Eyes Eyes: Denies blurry vision, Denies change in vision - Cardiovascular Cardiovascular: Denies chest pain, Reports palpitations (Colonic) - Respiratory Respiratory: No dyspnea - Gastrointestinal Gastrointestingal: Reports: abdominal pain, nausea, vomiting. Denies: diarrhea - Neurologic Neurologic: Reports headache(s) Physical Exam - General General appearance: alert, in no apparent distress - Head Head exam: atraumatic, normocephalic, normal inspection - Eye Eye exam: Present: normal appearance, PERRL, EOMI - ENT ENT exam: Present: normal exam, mucous membranes moist - Neck Neck exam: Present: normal inspection, full ROM, trachea midline. Absent: meningismus, lymphadenopathy - Chest Chest inspection: Present: normal inspection, symmetric chest wall rise. Absent: tenderness - Respiratory Respiratory exam: Present: normal lung sounds bilaterally. Absent: respiratory distress - Cardiovascular Cardiovascular exam: Present: regular rate, normal rhythm, other (PVC seen on the monitor). Absent: JVD - Abdominal Exam Abdominal exam: Present: soft, tenderness, normal bowel sounds. Absent: distention, guarding Abdominal tenderness: Present: diffuse - Extremities Exam Extremities exam: Present: normal inspection, full ROM, normal capillary refill - Back Exam Back exam: Present: normal inspection. Absent: tenderness - Neurological Exam Neurological exam: Present: alert, oriented X3, CN II-XII intact. Absent: motor sensory deficit - Psychiatric Psychiatric exam: Present: normal affect, normal mood - Skin Skin exam: Present: warm, dry, intact, normal color
[2018-05-30 11:43] LABS: Basophils # 0.1 K/mm3 (0-0.2); Basophils % 0.6 % (0.1-2.0); Eosinophils # 0.3 K/mm3 (0.0-0.4); Eosinophils % 2.7 % (0.1-12.0); Hematocrit 48.5 % (37.0-47.0); Hemoglobin 16.3 g/dL (12.2-16.2); Lymphocytes # 1.7 K/mm3 (0.7-4.5); Mean Corpuscular HGB Conc 33.7 g/dL (31.8-35.4); Mean Corpuscular Hemoglobin 29.8 pg (27.0-31.2); Mean Corpuscular Volume 88.3 fl (81-99); Mean Platelet Volume 7.1 fl (7.4-10.4); Monocytes # 0.5 K/mm3 (0.1-1.0); Monocytes % 5.1 % (1.7-9.3); Neutrophils # 6.9 K/mm3 (1.8-7.8); Neutrophils % 73.5 % (37.0-80.0); Platelet Count 398 K/mm3 (142-424); Red Blood Count 5.49 M/mm3 (4.20-5.40); Red Cell Distribution Width 13.2 % (11.5-17.5); White Blood Count 9.4 K/mm3 (4.8-10.8)
[2018-05-30 12:04] LABS: Anion Gap 13.4 mEq/L (5-15); Blood Urea Nitrogen 7 mg/dL (7-18); Calcium 8.8 mg/dL (8.5-10.1); Carbon Dioxide 30 mmol/L (21.0-32.0); Chloride 104 mmol/L (98-107); Free Thyroxine Index 5.6 ug/dL (5.93-13.13); Glucose 130 mg/dL (74-106); Sodium 145 mmol/L (136-145); T4 (Thyroxine) 15.6 ug/dl (4.7-13.3); Thyroid Stimulating Hormone 0.03 uIU/ml (0.358-3.740); Triiodothryronine (T3) Uptake 36 % (31-39)
[2018-05-30 12:07] LABS: Potassium 2.4 mmoL/L (3.5-5.1)
[2018-05-30 14:37] LABS: Appearance,Urine CLEAR (Clear); Bilirubin,Urine Negative (Negative); Blood, Urine Negative (Negative); Color,Urine YELLOW (Yellow); Glucose,Urine (UA) Negative (Negative); Ketones,Urine Negative (Negative); Leukocyte Esterase,Urine Negative (Negative); Microscopic, Urine URINE MICROSCOPIC (MICROSCOPIC); PH,Urine 6.5 (5.0-8.5); Protein,Urine Negative (Negative); Specific Gravity, Urine 1.015 (1.005-1.030)
[2018-05-30 14:49] LABS: Bacteria,Urine Trace /lpf; Mucus,Urine 2+ /lpf; RBC,Urine Occasional #/hpf (0-3); WBC,Urine Occasional #/hpf (0-3)
[2018-05-31 06:22] LABS: Anion Gap 8.1 mEq/L (5-15); Calcium 8.2 mg/dL (8.5-10.1); Potassium 3.1 mmoL/L (3.5-5.1)
--- NOTE | 2018-05-31 07:55 | Pharmacy Consult Notes ---
[facility] Pharmacy VTE Monitoring - Patient Demographics Admission date: 05/30/18 Report Date: 05/31/18 Time: 07:55 Allergies/Adverse Reactions: Patient Allergies No Known Allergies Allergy (Unverified 05/31/18 07:42) Height: 1.73 m Weight: 103.192 kg Patient Problems: Current Active Problems Hypokalemia (Acute) Hypertension, uncontrolled (Acute) Abdominal pain (Acute) Vomiting (Acute) Headache (Acute) - VTE Risk Labs: VTE Related Lab Results Hgb 16.3 g/dL (12.2-16.2) H 05/30/18 11:30 Hct 48.5 % (37.0-47.0) H 05/30/18 11:30 Plt Count 398 K/mm3 (142-424) 05/30/18 11:30 BUN 8 mg/dL (7-18) 05/31/18 05:20 Creatinine 0.86 mg/dL (0.55-1.02) 05/31/18 05:20 Estimated Creat Clear 115 mL/min (0-300) 05/31/18 05:20 Was VTE Risk Assessment Performed: Yes VTE Score: 3 VTE Risk Level: Low Risk - Prophylaxis VTE Prophylaxis Ordered?: Yes Types of VTE Prophylaxis: TEDS Knee High Location of Applied Device: Bilateral Lower Extremeties - VTE Diagnosis Confirmed Treatment or plan recommended: Continue Current Treatment
--- NOTE | 2018-05-31 08:01 | Consult Report ---
Addendum entered and electronically signed by DEBI Boyle 05/31/18 13:41: Echo shows preserved LVEF with evidence of HHD/diastolic dysfunction. OK for discharge home on coreg 25 mg BID, irbesartan 150 mg BID along with amlodipine 5 mg daily and hydralazine 25 mg TID. Stop HCTZ due to hypokalemia. RTC in 1-2 wks. Original Note: History of Present Illness Consult date: 05/31/18 Requesting physician: Kingsley Stinson Consult reason: hypertension Chief complaint: Headache, chest pain, HTN Additional Medical History:: 1. History of Takotsubo cardiomyopathy A. History of mild coronary artery disease by cardiac catheterizations in 2004 and 2015 per patient in [place]. 2. Hypertension, malignant 3. History of adrenal adenoma A. CT of abdomen, 05/2018, right adrenal adenoma 4. Tobacco use 5. Severe anxiety 6. Abnormal EKG with inferior and lateral ST segment abnormalities History of present illness: 57 yo WF with history of malignant HTN, "Takotsubo's cardiomyopathy" and tobacco use presented to ER for 3 day history of headache, chest discomfort nausea and vomiting with abdominal cramping. Patient had been out of her blood pressure medications due to problems with her insurance. She was admitted through the emergency department for elevated blood pressure with hypokalemia. Her medications were resumed overnight with significant improvement in her blood pressure. Potassium augmentation was started with improvement in potassium as well. Cardiology consulted for evaluation recommendations. Patient does have baseline abnormal EKG with exacerbation due to elevated blood pressure. Initial troponin was normal. [facility] History Medical History: Reports:: Anxiety, Congestive Heart Failure, Depression, Hypert ension Denies:: Atherosclerotic Heart Disease, Cancer, Diabetes Mellitus Type 1, Diabetes Mellitus Type 2, MRSA Other Medical History: Reports: Arthritis, Hypothyroidism, Other Other Surgeries: Yes: Cardiac Catheterization, Cholecystectomy, Amputation: No Fractures: No - *Social History Educational Level: Attended High School Smoking Status: Current every day smoker Tobacco Type: cigarettes # Packs/Day (cigarettes): 1 #Yrs smoked (if former smoker): 40 Alcohol Intake: never Alcohol Intake Frequency:: other Substance Use Type: denies use Occupational Status: disabled Housing: house Household Members: family - Psychiatric History Expresses thoughts of harming self/others: None Suicide Plan Description: No Plan Pschychiatric History:: Reports:: Anxiety, Depression *Family Hx:: Hypertension, Diabetes, Coronary Artery Disease Meds Allergies Allergy/AdvReac Type Severity Reaction Status Date / Time No Known Allergies Allergy Unverified 05/31/18 07:42 Review of Systems - *Cardiovascular Reports chest pain, Reports shortness of breath with activity - *Respiratory Reports shortness of breath with activity - *Gastrointestinal Reports abdominal pain - *Genitourinary Denies difficulty urinating, Denies side pain - *Musculoskeletal Denies back pain, Denies muscle cramps - *Neurologic Reports headache(s) Exam Vital signs and Labs for Last 24 Hours: Temp Pulse Resp BP Pulse Ox 98.9 F 59 L 16 176/97 96 05/31/18 04:00 05/31/18 04:00 05/31/18 04:00 05/31/18 04:00 05/31/18 04:00 Laboratory Results - last 24 hr 05/30/18 11:30: WBC 9.4, RBC 5.49 H, Hgb 16.3 H, Hct 48.5 H, MCV 88.3, MCH 29.8, MCHC 33.7, RDW 13.2, Plt Count 398, MPV 7.1 L, Neut % (Auto) 73.5, Lymph % (Auto) 18.0, [place] % (Auto) 5.1, Eos % (Auto) 2.7, Baso % (Auto) 0.6, Neut # (Auto) 6.9, Lymph # (Auto) 1.7, [place] # (Auto) 0.5, Eos # (Auto) 0.3, Baso # (Auto) 0.1 05/30/18 11:30: Sodium 145, Potassium 2.4 L*, Chloride 104, Carbon Dioxide 30, Anion Gap 13.4, BUN 7, Creatinine 0.87, Estimated Creat Clear 107, Estimated GFR 67, Est GFR ( Amer) 81, Glucose 130 H, Calcium 8.8, Troponin I < 0.02, TSH 0.03 L D, Free T4 Index 5.6 L, Thyroxine (T4) 15.6 H, T3 Uptake 36 05/30/18 11:30: Lipase 151 05/30/18 11:30: Magnesium 1.9 05/30/18 14:15: Urine Color Yellow, Urine Appearance Clear, Urine pH 6.5, Ur Specific [place] 1.015, Urine Protein Negative, Urine Glucose (UA) Negative, Urine Ketones Negative, Urine Blood Negative, Urine Nitrate Negative, Urine Bi lirubin Negative, Urine Urobilinogen 1.0, Ur Leukocyte Esterase Negative, Urine RBC Occasional, Urine WBC Occasional, Ur Squamous Epith Cells 5-10, Urine Bacteria Trace, Urine Mucus 2+ 05/31/18 05:20: Sodium 146 H, Potassium 3.1 L D, Chloride 111 H, Carbon Dioxide 30, Anion Gap 8.1, BUN 8, Creatinine 0.86, Estimated Creat Clear 115, Estimated GFR 68, Est GFR ( Amer) 82, Glucose 91 D, Calcium 8.2 L I & O for Last 24 hours: Intake & Output 05/28/18 05/29/18 05/30/18 05/31/18 11:59 11:59 11:59 11:59 Intake Total 2123 / 2123 Output Total 350 / 350 Balance 1773 / 1773 Weight 215 lb 227 lb 8 oz - *Routine Neck Exam Present: supple. Absent: JVD, carotid bruit - *Routine Respiratory Exam Present: CTA bilaterally. Absent: accessory muscle use, rales, rhonchi, wheezes - *Routine Cardiovascular Exam Present: RRR. Absent: murmur, gallop, rubs - *Routine Abdominal Exam Present: soft. Absent: tenderness, distended, guarding - *Routine Extremities Exam Absent: edema, calf tenderness - *Routine Neurological Exam Present: alert, oriented X3, moving all extremities Assessment and Plan (1) Hypertensive urgency, malignant Current visit: Yes Status: Acute Category: Medical Code(s): I16.0 - Hypertensive urgency (2) Hyperthyroidism determined by thyroid function test Current visit: Yes Status: Acute Category: Medical Code(s): E05.90 - Thyrotoxicosis, unspecified without thyrotoxic crisis or storm; R94.6 - Abnormal results of thyroid function studies (3) Abdominal pain Current visit: Yes Status: Acute Qualifiers: Abdominal location: generalized Qualified Code(s): R10.84 - Generalized abdominal pain Category: Medical Code(s): R10.9 - Unspecified abdominal pain (4) Headache Current visit: Yes Status: Acute Qualifiers: Headache type: unspecified Headache chronicity pattern: acute headache Intractability: intractable Qualified Code(s): R51 - Headache Category: Medical Code(s): R51 - Headache (5) Vomiting Current visit: Yes Status: Acute Qualifiers: Vomiting type: unspecified Vomiting Intractability: intractable Nausea presence: with nausea Qualified Code(s): R11.2 - Nausea with vomiting, unspecified Category: Medical Code(s): R11.10 - Vomiting, unspecified (6) Non-compliance Current visit: No Status: Acute Category: Medical Code(s): Z91.19 - Patient's noncompliance with other medical treatment and regimen (7) Hypokalemia Current visit: No Status: Resolved Category: Medical Code(s): E87.6 - Hypokalemia (8) Abnormal EKG Current visit: Yes Status: Acute Category: Medical Code(s): R94.31 - Abnormal electrocardiogram [ECG] [EKG] - Assessment and plan all Dx Assessment and Plan for all problems:: 1. Patient has been started on carvedilol and irbesartan therapy in addition to amlodipine and hydralazine. Continue to monitor blood pressure today but patient should be ready for discharge later today. Stop HCTZ and use spironolactone due to potassium sparing properties. 2. We will obtain an echocardiogram today to evaluate left ventricular size and function due to history of Takotsubo cardiomyopathy and malignant hypertension. Patient does have an abnormal EKG but with normal troponin and reportedly normal cardiac cath just 2-3 years ago would not pursue further evaluation at this time outside of echocardiogram. Patient states her headache and chest pain have resolved with improvement in her blood pressure. 3. We will defer follow-up of her thyroid to primary care physician.
[2018-05-31 08:15] VITALS: BP 180/101
[2018-05-31 10:43] LABS: Free T4 (Free Thyroxine) 1.46 ng/dl (0.76-1.46); Thyroid Stimulating Hormone 0.05 uIU/ml (0.358-3.740)
--- NOTE | 2018-05-31 13:42 | Cardiology Report ---
PROCEDURE: 2-D M-mode and color Doppler study INDICATIONS FOR THE TEST: Chest pain+ COPD+ Heart Murmur Tobacco Smoking Palpitations+ Fatigue+ Syncope Edema Hypertension+Diabetes Mellitus Rheumatic Fever SOB DOWNS+Obesity+Hyperlipidemia+ Family History HD+ Additional History hx of takotsubo CM, CAD, severe anxiety, ABN EKG, CHF PATIENT INFORMATION HEIGHT: 68 WEIGHT: 227 GENDER: Female B/P: 145/86 2-D/M-MODE INTERPRETATION: 2-D MEASUREMENTS OBSERVED VALUES IN CMS Right Ventricular Dimension (RVDd) 2.0 Interventricular Septum (Thickness)(IVsd) 1.0 Left Ventricular Internal Dimensions(LVIDd) 5.3 Left Ventricular Posterior Wall (Thickness)(LVPWd) 1.1 Aortic Root 2.9 Aortic Cusp Separation 2.0 Left Atrial Dimensions (LAD) 3.7 2D 1. Left atrium is mildly enlarged, left ventricle is normal size, mild concentric left ventricular hypertrophy, visually estimated ejection fraction 55% with no obvious regional wall motion abnormality. 2. The right atrium and right ventricle are relatively mildly enlarged with normal contractility. 3. The aortic valve is thickened and calcified leaflet continue to display good mobility. 4. The mitral valve has mitral calcification, leaflets are minimally thickened. 5. The tricuspid valve is grossly normal. 6. The pulmonic valve is poorly visualized. 7. No significant pericardial effusion noted. DOPPLER INTERROGATION: Doppler interrogation of the aortic, mitral and tricuspid valvular presence of trace aortic, mild mitral and tricuspid regurgitation, calculated right ventricular systolic pressure is 43 mmHg consistent with moderate pulmonary hypertension, grade 1 diastolic dysfunction seen with tissue Doppler evidence of raised left atrial pressure. CONCLUSION: 1. Mild biatrial enlargement, normal left ventricular size, mild concentric left ventricular hypertrophy, visually estimated ejection fraction of 55% with no obvious regional wall motion abnormality, grade 1 diastolic dysfunction seen with tissue Doppler evidence of raised left atrial pressure. 2. Thickened and calcified aortic valve without aortic stenosis, there is trace aortic insufficiency. 3. Mild mitral and tricuspid regurgitation, calculated right ventricular systolic pressure 43 mmHg consistent with moderate pulmonary hypertension. 4. No significant pericardial effusion noted.
== END 2018-05-31 16:40 | disposition home or self-care (01) ==
LOC: ER 11:25 → 2ND 11:25
PROVIDERS: ADMIT Emergency Medicine; ATTEND Emergency Medicine

== ENCOUNTER → 2019-03-26 13:15 | Outpatient (CLI) | payer BC, SELFPAY ==
[2019-03-26 14:18] LABS: Alanine Aminotransferase 21 U/L (12-78); Albumin Level 3.4 gm/dL (3.4-5.0); Alkaline Phosphatase 149 U/L (46-116); Anion Gap 13.4 mEq/L (5-15); Aspartate Amino Transferase 14 U/L (15-37); Bilirubin,Total 0.4 mg/dL (0.2-1.0); Blood Urea Nitrogen 10 mg/dL (7-18); Calcium 8.2 mg/dL (8.5-10.1); Carbon Dioxide 28 mmol/L (21.0-32.0); Chloride 105 mmol/L (98-107); Chol/HDL Ratio 5.4 (1-3.5); Cholesterol 215 mg/dL (140-200); Creatinine,Serum 0.79 mg/dL (0.55-1.02); Estimated Glomerular Filt Rate 74 ml/min (>60); GFR (African American) 90 ML/MIN (>60); Globulin 3.5 gm/dl (1.3-3.2); Glucose 87 mg/dL (74-106); HDL Cholesterol 40 mg/dL (29-89); LDL Cholesterol 151 mg/dL (0-130); Potassium 3.4 mmoL/L (3.5-5.1); Sodium 143 mmol/L (136-145); T4 (Thyroxine) 7.2 ug/dl (4.7-13.3); Thyroid Stimulating Hormone 23.28 uIU/ml (0.358-3.740); Total Protein,Serum 6.9 gm/dL (6.4-8.2); Triglycerides 118 mg/dL (30-200); VLDL Cholesterol 24 mg/dL (0-40)
[2019-03-26 14:45] LABS: Basophils # 0.1 K/mm3 (0-0.2); Eosinophils # 0.3 K/mm3 (0.0-0.4); Eosinophils % 3.8 % (0.1-12.0); Hematocrit 45.2 % (37.0-47.0); Hemoglobin 14.4 g/dL (12.2-16.2); Lymphocytes # 2.1 K/mm3 (0.7-4.5); Lymphocytes % 28.6 % (10-50); Mean Corpuscular HGB Conc 31.8 g/dL (31.8-35.4); Mean Corpuscular Hemoglobin 29.9 pg (27.0-31.2); Mean Corpuscular Volume 94.2 fl (81-99); Mean Platelet Volume 9.1 fl (7.4-10.4); Monocytes # 0.3 K/mm3 (0.1-1.0); Monocytes % 4.5 % (1.7-9.3); Neutrophils # 4.5 K/mm3 (1.8-7.8); Neutrophils % 62.2 % (37.0-80.0); Platelet Count 368 K/mm3 (142-424); White Blood Count 7.2 K/mm3 (4.8-10.8)
[2019-03-27 14:48] LABS: Vitamin D 25 Hydroxy 12.7 ng/mL (30.0-100.0)
== END ==
PROVIDERS: Visit Provider Nurse Practitioner Family
DX: E03.9 Hypothyroidism, unspecified (principal)
CPT/HCPCS: 80053; 80061; 82652; 84436; 84443; 85025

== ENCOUNTER → 2019-04-26 13:47 | Outpatient (CLI) | payer BC, SELFPAY ==
[2019-04-26 14:47] LABS: Free T4 (Free Thyroxine) 1.16 ng/dl (0.76-1.46); Thyroid Stimulating Hormone 10.51 uIU/ml (0.358-3.740)
== END ==
PROVIDERS: Visit Provider Nurse Practitioner Family
DX: E03.9 Hypothyroidism, unspecified (principal)
CPT/HCPCS: 84439; 84443

== ENCOUNTER → 2019-04-30 15:18 | Outpatient (CLI) | payer BC, SELFPAY ==
--- NOTE | 2019-04-30 15:19 | MM_ITS ---
PROCEDURE: MM DIG SCREENING MAMM BI W/CAD CLINICAL INDICATION: Screening mammogram. No hormones. No new complaints. Family history of mother with breast cancer. COMPARISON: Called for outside prior mammogram from [place], but Appear to have been purged from that facility and no longer available Therefore no prior studies available for comparison today. TECHNIQUE: Standard CC and MLO images were obtained. R2 CAD reviewed. Additional CC views of both breasts included FINDINGS: no prior studies available for comparison. Appear to have been purged from outside facility Minimal residual fibroglandular elements slightly more evident at the right breast towards upper-outer quadrant, the left Lower density breast overall with moderate fatty replacement. No new areas of significant concern. No dominant nor suspicious mass. No suspicious or clustered microcalcifications. Right breast but areas of mild asymmetry dissipate one-view to another with with no area of significant concern but focal motor adequate IMPRESSION: No prior studies for comparison. Minimal asymmetry but no significant area of concern bilateral follow-up 1 year recommended and encouraged, to further confirm stable baseline (Particularly since with positive family history, and no prior studies available.) BI-RAD Category: 2 Benign Finding(s) FOLLOW-UP: 1YR 1 Year Follow-up (A letter has been sent to the patient regarding results of the study.) Dictated by: Mayco Mcguire MD 05/06/2019 13:24 Signed by: <Electronically signed by Mayco Mcguire MD in [place]> 05/06/2019 13:25
== END ==
PROVIDERS: PCP Nurse Practitioner Family; Visit Provider Emergency Medicine
DX: Z12.31 Encounter for screening mammogram for malignant neoplasm of breast (principal)
CPT/HCPCS: 71046; 77067

== ENCOUNTER → 2019-05-23 08:10 | Outpatient (CLI) | payer BC, SELFPAY ==
[2019-05-23 10:03] LABS: Free T4 (Free Thyroxine) 1.09 ng/dl (0.76-1.46); Thyroid Stimulating Hormone 10.13 uIU/ml (0.358-3.740)
[2019-05-24 08:18] LABS: Thyroid Peroxidase Antibodies 335 IU/mL (0-34)
[2019-05-24 11:46] LABS: Triiodothyronine (T3) Free 2.4 pg/mL (2.0-4.4)
[2019-05-24 17:34] LABS: Calcitonin <2.0 pg/mL (0.0-5.0)
[2019-05-27 09:53] LABS: Thyroid Stimulating Immunoglob <0.10 IU/L (0.00-0.55)
== END ==
PROVIDERS: Visit Provider Otolaryngology
DX: E03.9 Hypothyroidism, unspecified (principal)
CPT/HCPCS: 36415; 82308; 84439; 84443; 84445; 84481; 86376

== ENCOUNTER → 2019-05-23 12:40 | Outpatient (CLI) | payer BC, SELFPAY ==
--- NOTE | 2019-05-23 12:40 | US_ITS ---
PROCEDURE: US THYROID CLINICAL INDICATION: Hypothyroidism COMPARISON: No exams were available for comparison FINDINGS: Right lobe: 2.3 x 1 x 1 cm Left lobe: 1.8 x 0.7 x 1.1 cm Isthmus: 3 mm in thickness Additional findings: There is heterogeneous echogenicity of both lobes of the thyroid gland. No discrete nodule is evident IMPRESSION: Small bilateral thyroid with heterogeneous echogenicity with no discrete nodule Dictated by: Gelacio Shah MD 05/23/2019 15:04 Electronically signed by Gelacio Shah MD in [place] 05/23/2019 15:04
== END ==
PROVIDERS: PCP Emergency Medicine; Visit Provider Otolaryngology
DX: E03.9 Hypothyroidism, unspecified (principal)
CPT/HCPCS: 76536

== ENCOUNTER → 2019-08-13 12:06 | Outpatient (CLI) | payer BC, SELFPAY ==
[2019-08-13 14:02] LABS: Blood Urea Nitrogen 8 mg/dL (7-18); Calcium 8.1 mg/dL (8.5-10.1); Carbon Dioxide 31 mmol/L (21.0-32.0); Chloride 104 mmol/L (98-107); Creatinine,Serum 0.82 mg/dL (0.55-1.02); Estimated Glomerular Filt Rate 71 ml/min (>60); GFR (African American) 86 ML/MIN (>60); Glucose 90 mg/dL (74-106); Magnesium 1.9 mg/dL (1.4-2.2); Sodium 141 mmol/L (136-145)
== END ==
PROVIDERS: Visit Provider Internal Medicine
DX: E78.5 Hyperlipidemia, unspecified (principal); I10 Essential (primary) hypertension; I50.9 Heart failure, unspecified; R60.0 Localized edema; R63.5 Abnormal weight gain; F17.200 Nicotine dependence, unspecified, uncomplicated
CPT/HCPCS: 36415; 80048; 83735

== ENCOUNTER → 2019-08-19 09:28 | Outpatient (CLI) | payer BC, SELFPAY ==
[2019-08-19 12:05] LABS: Anion Gap 13.4 mEq/L (5-15); Blood Urea Nitrogen 13 mg/dL (7-18); Calcium 8.3 mg/dL (8.5-10.1); Carbon Dioxide 28 mmol/L (21.0-32.0); Chloride 105 mmol/L (98-107); Creatinine,Serum 1.01 mg/dL (0.55-1.02); Estimated Glomerular Filt Rate 56 ml/min (>60); GFR (African American) 68 ML/MIN (>60); Glucose 89 mg/dL (74-106); Magnesium 1.9 mg/dL (1.4-2.2); Potassium 4.4 mmoL/L (3.5-5.1); Sodium 142 mmol/L (136-145)
== END ==
PROVIDERS: Visit Provider Internal Medicine
DX: E78.5 Hyperlipidemia, unspecified (principal); I10 Essential (primary) hypertension; I50.9 Heart failure, unspecified; R60.0 Localized edema; R63.5 Abnormal weight gain; F17.200 Nicotine dependence, unspecified, uncomplicated
CPT/HCPCS: 36415; 80048; 83735

== ENCOUNTER → 2019-08-26 13:03 | Outpatient (CLI) | payer BC, SELFPAY ==
--- NOTE | 2019-08-26 13:04 | US_ITS ---
PROCEDURE: US THYROID CLINICAL INDICATION: thyroiditis Hypothyroidism COMPARISON: US THYROID from 05/23/2019 FINDINGS: Right lobe: 3.2 x 1.3 x 1.2 cm Left lobe: 2.7 x 0.9 x 1 1 cm Isthmus: Additional findings: There is diffuse heterogeneous echogenicity with no discrete nodule and no significant change. IMPRESSION: No change small heterogeneous thyroid gland Dictated by: Gelacio Shah MD 08/27/2019 12:40 Electronically signed by Gelacio Shah MD in [place] 08/27/2019 12:40
--- NOTE | 2019-08-26 13:36 | CA_ITS ---
APPROVED REPORT EXAM: Comprehensive 2D, Doppler, and color-flow Echocardiogram Health Support Specialist: Jaclyn Whipple CRT Ht: 5 ft 8 in Wt: 258lbs BSA: 2.28 BP: 143/92 mmHg Indications: CHF, EDEMA, TAKOTSUBO CM, CONN SYNDROME 2D Dimensions LVOT 1.50 cm (M/F) 1.5-2.5 M-Mode Dimensions RVDd 2.62 cm (0.9-2.6) LVDd 4.81 cm (3.5-5.7) LVDs 3.77 cm (3.5-5.7) IVSd 2.08 cm (0.6-1.1) PWd 0.80 cm (0.6-1.1) EF (Teich) 43.70% FS 21.60% EDV (Teich) 108.00 mL ESV (Teich) 60.80 mL LV Diastology E/A Ratio 0.79 Mitral Valve MV A Velocity 75.00 (40-130 cm/s) Left Ventricle Left atrium is mildly enlarged, left ventricle is normal size, mild concentric left ventricular hypertrophy, visually estimated ejection fraction 55% with no regional wall motion abnormality, endocardial surfaces are poorly visualized, grade 1 diastolic dysfunction seen without tissue Doppler evidence of raise left atrial pressure. Right Ventricle Right atrium and right ventricular normal size and contractility. Aortic Valve Aortic valve is minimally thickened and fibrosed, there is no aortic stenosis, there is trace aortic insufficiency. Mitral Valve Mitral valve is grossly normal, there is mild mitral regurgitation. Tricuspid Valve Tricuspid valve is grossly normal, there is mild tricuspid regurgitation. Tricuspid regurgitation jet velocity is inadequate for calculation of the right ventricular systolic pressure. Pulmonic Valve Pulmonic valve is poorly visualized. Great Vessels Aortic root is normal size. Pericardium No significant pericardial effusion noted. Conclusion 1. Mildly enlarged left atrium, normal left ventricular size, mild concentric left ventricular hypertrophy, visually estimated ejection fraction 55% with no regional wall motion abnormality, grade 1 diastolic dysfunction seen without tissue Doppler evidence of raise left atrial pressure. 2. Trace aortic, mild mitral and tricuspid regurgitation. 3. No significant pericardial effusion noted. Electronically signed by : Gray Coker, 08/26/2019 20:30:54
== END ==
PROVIDERS: PCP Emergency Medicine; Visit Provider Otolaryngology
DX: E06.3 Autoimmune thyroiditis (principal)
CPT/HCPCS: 76536; 93306

== ENCOUNTER → 2019-09-23 14:29 | Outpatient (CLI) | payer BC, SELFPAY ==
[2019-09-23 15:31] LABS: Anion Gap 11.3 mEq/L (5-15); Blood Urea Nitrogen 10 mg/dL (7-18); Carbon Dioxide 28 mmol/L (21.0-32.0); Chloride 107 mmol/L (98-107); Creatinine,Serum 1.04 mg/dL (0.55-1.02); Estimated Glomerular Filt Rate 54 ml/min (>60); GFR (African American) 65 ML/MIN (>60); Glucose 89 mg/dL (74-106); Magnesium 1.8 mg/dL (1.4-2.2); Potassium 4.3 mmoL/L (3.5-5.1); Sodium 142 mmol/L (136-145)
== END ==
PROVIDERS: Physician Assistant; Visit Provider Otolaryngology
DX: E87.6 Hypokalemia (principal); E83.42 Hypomagnesemia
CPT/HCPCS: 36415; 80048; 83735

== ENCOUNTER → 2019-10-29 10:45 | Outpatient (CLI) | payer BC, SELFPAY ==
[2019-10-29 14:46] LABS: Anion Gap 14.1 mEq/L (5-15); Blood Urea Nitrogen 15 mg/dL (7-18); Calcium 8.5 mg/dL (8.5-10.1); Carbon Dioxide 27 mmol/L (21.0-32.0); Chloride 108 mmol/L (98-107); Creatinine,Serum 1.13 mg/dL (0.55-1.02); Estimated Glomerular Filt Rate 49 ml/min (>60); GFR (African American) 59 ML/MIN (>60); Glucose 91 mg/dL (74-106); Potassium 4.1 mmoL/L (3.5-5.1); Sodium 145 mmol/L (137-145)
== END ==
PROVIDERS: Visit Provider Internal Medicine Endocrinology, Diabetes & Metabolism
DX: E26.09 Other primary hyperaldosteronism (principal)
CPT/HCPCS: 36415; 80048

== ENCOUNTER → 2020-03-12 10:35 | Outpatient (CLI) | payer MEDICARE, BC, SELFPAY ==
[2020-03-12 13:16] LABS: Blood Urea Nitrogen 13 mg/dl (7-17); Calcium 9.4 mg/dl (8.4-10.2); Carbon Dioxide 32 mmol/L (22.0-30.0); Chloride 99 mmol/L (98-107); Estimated Glomerular Filt Rate 56 ml/min (>60); GFR (African American) 68 ML/MIN (>60); Glucose 112 mg/dl (74-100); Sodium 136 mmol/L (136-145)
[2020-03-12 13:33] LABS: Free T4 (Free Thyroxine) 1.05 ng/dl (0.78-2.19)
== END ==
PROVIDERS: Otolaryngology; Visit Provider Physician Assistant
DX: E03.9 Hypothyroidism, unspecified (principal); I10 Essential (primary) hypertension
CPT/HCPCS: 36415; 80048; 84439; 84443

== ENCOUNTER → 2020-07-09 15:07 | Outpatient (CLI) | payer MEDICARE, BC, SELFPAY ==
[2020-07-09 15:28] LABS: Basophils # 0.1 K/mm3 (0-0.2); Basophils % 0.6 % (0.1-2.0); Eosinophils # 0.4 K/mm3 (0.0-0.4); Eosinophils % 3.5 % (0.1-12.0); Hematocrit 48.3 % (37.0-47.0); Hemoglobin 15.5 g/dL (12.2-16.2); Lymphocytes # 2.3 K/mm3 (0.7-4.5); Mean Corpuscular HGB Conc 32.2 g/dL (31.8-35.4); Mean Corpuscular Hemoglobin 30.9 pg (27.0-31.2); Mean Corpuscular Volume 95.9 fl (81-99); Mean Platelet Volume 9.7 fl (7.4-10.4); Monocytes # 0.6 K/mm3 (0.1-1.0); Monocytes % 5.2 % (1.7-9.3); Neutrophils # 7.5 K/mm3 (1.8-7.8); Neutrophils % 69.8 % (37.0-80.0); Platelet Count 337 K/mm3 (142-424); Red Blood Count 5.03 M/mm3 (4.20-5.40); Red Cell Distribution Width 13.2 % (11.5-17.5); White Blood Count 10.8 K/mm3 (4.8-10.8)
[2020-07-09 15:44] LABS: Alanine Aminotransferase 18 U/L (12-78); Albumin/Globulin Ratio 1.3 (1.1-1.8); Alkaline Phosphatase 80 U/L (38-126); Anion Gap 10.8 mEq/L (5-15); Aspartate Amino Transferase 24 U/L (14-36); Bilirubin,Total 0.6 mg/dl (0.2-1.3); Blood Urea Nitrogen 13 mg/dl (7-17); Calcium 9.3 mg/dl (8.4-10.2); Carbon Dioxide 27 mmol/L (22.0-30.0); Chloride 105 mmol/L (98-107); Chol/HDL Ratio 8.3 (1-3.5); Cholesterol 250 mg/dl (140-200); Estimated Glomerular Filt Rate 56 ml/min (>60); GFR (African American) 68 ML/MIN (>60); Globulin 3.2 g/dL (1.3-3.2); Glucose 118 mg/dl (74-100); HDL Cholesterol 30 mg/dl (40-60); Potassium 3.8 mmoL/L (3.5-5.1); Sodium 139 mmol/L (136-145); Total Protein,Serum 7.2 g/dl (6.3-8.2); Triglycerides 208 mg/dl (30-150); VLDL Cholesterol 42 mg/dL (0-40)
[2020-07-09 15:56] LABS: Direct LDL Cholesterol 183.19 mg/dL (100-129)
[2020-07-09 16:01] LABS: Free T4 (Free Thyroxine) 1.29 ng/dl (0.78-2.19)
== END ==
PROVIDERS: Visit Provider Nurse Practitioner Family
DX: R68.89 Other general symptoms and signs (principal); Z00.00 Encounter for general adult medical examination without abnormal findings; I10 Essential (primary) hypertension
CPT/HCPCS: 80053; 80061; 84439; 84443; 85025

== ENCOUNTER 2020-11-04 15:08 | Emergency (ER) | payer MEDICARE, BC, SELFPAY ==
[2020-11-04 15:10] VITALS: BP 140/82; PULSE 82; RESP 19; TEMP 36.6; O2SAT 98; BMI 38.7
--- NOTE | 2020-11-04 15:44 | HMH.EDUTC ---
[facility] [place] Disposition Clinical Impression: Exposure to COVID-19 virus Acute bronchitis Qualifiers: Bronchitis organism: unspecified organism Qualified Code(s): J20.9 - Acute bronchitis, unspecified Disposition: Home, Self-Care Condition on Discharge: Good Instructions: COPD: When to Call for Help, DI for COVID-19 (Suspected or Confirmed ), Preventing the Spread of Coronavirus Discharge Instructions Additional Instructions: Drink plenty of fluids. Take tylenol for pain or fever. Return if you begin to have difficulty breathing. Follow up with your regular doctor. GO TO THE ER FOR ANY WORSENING SYMPTOMS Prescriptions: Benzonatate [Tessalon Perle 100mg Cap] 100 mg PO TIDP PRN #30 cap PRN Reason: Cough Transmission Status: Received by [facility] [employer] Azithromycin [Z-Yuniel 250mg Tab*] 250 mg PO UD DOSE PK #6 tab Transmission Status: Received by [facility] [employer] Referrals: Kingsley Stinson MD [Primary Care Provider] - Time of Disposition: 15:53 Medical Decision Making - Medical Records Medical records reviewed: No: I reviewed the patient's medical records. - Neo Inquiry Pt receiving controlled substance: No Vital Signs: 11/04/20 15:10 11/04/20 15:57 Temperature 97.8 F 97.8 F Temperature Source Oral Pulse Rate 82 Pulse Rate [Right Brachial] 82 Respiratory Rate 19 19 Blood Pressure 140/82 Blood Pressure [Right Arm] 140/82 Blood Pressure Mean [Right Arm] 101 Blood Pressure Source [Right Arm] Automatic Cuff Blood Pressure Position [Right Arm] Sitting 02 Sat by Pulse Oximetry 98 Oxygen Delivery Method Room Air [facility] [place] HPI - General Stated complaint: covid test Time Seen by Provider: 11/04/20 15:15 Mode of Arrival: Ambulatory Source of Information: Patient Limitations: No Limitations Description of Symptoms (Recalled from Triage Doc. by RN): COVID TEST D/T EXPOSURE HEENT Symptoms (Recalled from RN notes): No Resp Symptoms (Recalled from RN notes): No Skin Symptoms (Recalled from RN notes): No MS Symptoms (Recalled from RN notes): No Functional Status (Recalled from RN notes): WNL - History of Present Illness Provider Complaint: She states that she was exposed to covid-19 about 4 days ago. She states that she has begin to feel bad and have body aches since last night. She is coughing, but she denies any shortness of breath. She does have a history of copd. - Related Data Previous Rx's Medication Instructions Recorded hydroxyzine HCl 25 mg tablet See Rx Instructions .ROUTE 12/10/19 .COMPLEX #90 tab cyclobenzaprine 10 mg tablet 10 mg PO TID PRN #30 tab 07/09/20 prednisone 20 mg tablet 20 mg PO BID 5 Days #10 tab 07/09/20 carvedilol 25 mg tablet See Rx Instructions .ROUTE 07/13/20 .COMPLEX #180 tab naproxen 500 mg tablet 500 mg PO BID PRN #30 tab 07/14/20 omeprazole 40 mg capsule,delayed See Rx Instructions .ROUTE 08/05/20 release .COMPLEX #90 cap levothyroxine 200 mcg tablet See Rx Instructions .ROUTE 08/10/20 .COMPLEX #90 tablet levothyroxine 25 mcg tablet See Rx Instructions .ROUTE 08/10/20 .COMPLEX #90 tab losartan 100 mg tablet See Rx Instructions .ROUTE 08/11/20 .COMPLEX #90 tab spironolactone 100 mg tablet 100 mg PO BID #60 tab 10/16/20 sucralfate 1 gram tablet See Rx Instructions .ROUTE 10/27/20 .COMPLEX #120 tab Azithromycin [Z-Yuniel 250mg Tab*] 250 mg PO UD DOSE PK #6 tab 11/04/20 Benzonatate [Tessalon Perle 100mg 100 mg PO TIDP PRN #30 cap 11/04/20 Cap] Allergies Allergy/AdvReac Type Severity Reaction Status Date / Time No Known Allergies Allergy Verified 07/09/20 09:14 - Worker's Comp Is this a Worker's Comp case?: No [facility] History - Hepatitis A Screen Drug use history?: No High risk sexual behaviors?: No History of sexually transmitted infection?: No Currently employed?: No Childcare worker?: No Do you have indoor plumbing?: Yes Do you have electricity?: Yes Attestation statement:: This patient has been screened for Hep
[2020-11-04 15:57] VITALS: BP 140/82; PULSE 82; RESP 19; TEMP 36.6; O2SAT 98
== END 2020-11-04 15:58 | disposition home or self-care (01) ==
PROVIDERS: Emergency Provider Nurse Practitioner Family; PCP Emergency Medicine
DX: Z20.822 Contact with and (suspected) exposure to COVID-19 (principal); J20.9 Acute bronchitis, unspecified; J44.9 Chronic obstructive pulmonary disease, unspecified; I10 Essential (primary) hypertension; E78.5 Hyperlipidemia, unspecified; F41.8 Other specified anxiety disorders; F17.210 Nicotine dependence, cigarettes, uncomplicated; Z79.899 Other long term (current) drug therapy
CPT/HCPCS: G0463; 99202; U0003

== ENCOUNTER → 2021-01-08 10:24 | Outpatient (CLI) | payer MEDICARE, SELFPAY ==
[2021-01-08 11:09] LABS: Alanine Aminotransferase 13 U/L (12-78); Albumin Level 4.2 g/dl (3.5-5.0); Alkaline Phosphatase 72 U/L (38-126); Aspartate Amino Transferase 20 U/L (14-36); Bilirubin,Indirect 0.4 mg/dL (0.0-0.9); Bilirubin,Total 0.4 mg/dl (0.2-1.3); Bilirubin,Unconjugated 0.4 mg/dL (0.0-1.1); Chol/HDL Ratio 7.6 (1-3.5); Cholesterol 275 mg/dl (140-200); HDL Cholesterol 36 mg/dl (40-60); Total Protein,Serum 7.4 g/dl (6.3-8.2); Triglycerides 138 mg/dl (30-150); VLDL Cholesterol 28 mg/dL (0-40)
[2021-01-08 11:20] LABS: Direct LDL Cholesterol 197.73 mg/dL (100-129)
== END ==
PROVIDERS: Visit Provider Internal Medicine Cardiovascular Disease
DX: E26.01 Conn's syndrome (principal); E78.5 Hyperlipidemia, unspecified; F17.200 Nicotine dependence, unspecified, uncomplicated; I10 Essential (primary) hypertension; I50.9 Heart failure, unspecified; R60.0 Localized edema; R63.5 Abnormal weight gain
CPT/HCPCS: 36415; 80061; 80076

== ENCOUNTER → 2021-02-02 14:26 | Outpatient (CLI) | payer MEDICARE, MEDICAID, SELFPAY ==
--- NOTE | 2021-02-02 14:41 | CA_ITS ---
APPROVED REPORT EXAM: Comprehensive 2D, Doppler, and color-flow Echocardiogram Plater Apprentice: Jaclyn Whipple CRT Ht: 5 ft 6 in Wt: 251lbs BSA: 2.20 BP: 197/106 mmHg Indications: Chest Pain, Congestive Heart Failure, Shortness of Breath, Peripheral Edema, Hyperlipidemia, Hypertension/HDD,smoker 2D Dimensions LVOT 1.97 cm (M/F) 1.5-2.5 LA Volume 48.70 mL LA Volume Index 22.106622 mL/m2 (M/F) 16-34 M-Mode Dimensions RVDd 3.36 cm (0.9-2.6) LA Diam 3.20 cm (1.9-4.0) LVDd 4.22 cm (3.5-5.7) Ao Diam 3.30 cm (2.0-3.7) LVDs 2.47 cm (3.5-5.7) IVSd 1.25 cm (0.6-1.1) PWd 1.11 cm (0.6-1.1) EF (Teich) 72.70% FS 41.50% EDV (Teich) 79.50 mL TAPSE 1.65 (<1.7) ESV (Teich) 21.70 mL LV Diastology E Decel Time 350.00 (160-240 msec) E/A Ratio 0.88 MED E' 7.00 (< 7 cm/sec) MED A' 8.40 cm/s E'/MED E' Ratio 9.69 (>14) LAT E' 8.10 (<10 cm/sec) LAT A' 12.70 cm/s E/LAT E' Ratio 8.37 (>14) Aortic Valve AI PHT 538.00 ms AO Peak GR. 10.50 mmHg Mitral Valve MV A Velocity 77.00 (40-130 cm/s) E/A Ratio 0.88 MV Decel. Time 350.00 (160-240 ms) Pulmonary Valve PV Peak Velocity 54.00 (50-150 cm/s) Tricuspid Valve TR P. Velocity 344.00 cm/s RAP Estimate 10.00 mmHg RVSP 57.50 mmHg Left Ventricle Left atrium is mildly enlarged, left ventricle is normal size, mild concentric left ventricular hypertrophy, visually estimated ejection fraction 55% with no regional wall motion abnormality, grade 1 diastolic dysfunction seen without tissue Doppler evidence of raise left atrial pressure. Right Ventricle Right atrium and right ventricle are mildly enlarged with normal contractility. Aortic Valve Aortic valve is thickened and calcified without aortic stenosis, there is mild aortic insufficiency. Mitral Valve Mitral valve is grossly normal, there is trace mitral regurgitation. Tricuspid Valve Tricuspid valve grossly normal, there is trace tricuspid regurgitation, tricuspid regurgitation jet velocity is inadequate for calculation of the right ventricular systolic pressure. Pulmonic Valve Pulmonic valve is poorly visualized. Great Vessels Aortic root is normal size. Pericardium No significant pericardial effusion noted. Conclusion 1. Mild biatrial enlargement, normal left ventricular size, mild concentric left ventricular hypertrophy, visually estimated ejection fraction 55% with no regional wall motion abnormality, grade 1 diastolic dysfunction seen without tissue Doppler evidence of raise left atrial pressure. 2. Mild aortic, trace mitral and tricuspid regurgitation. 3. No significant pericardial effusion noted. Electronically signed by : Gray Coker, 02/02/2021 21:19:23
--- NOTE | 2021-02-02 15:21 | CT_ITS ---
PROCEDURE: CT CHEST WO CON CLINICAL INDICATION: chest pain Had and foot operation SOB Fatigue Nausea COMPARISON: No exams were available for comparison TECHNIQUE: Axial images obtained with sagittal and coronal reformats. All CT scans at the facility use one or more dose reduction, viz: automated exposure control, ma/kV adjustment per patient size (including targeted exams where dose is matched to indication, i.e. head), or iterative reconstruction technique. FINDINGS: HEART AND MEDIASTINAL STRUCTURES: Coronary artery calcifications are present. No obvious mediastinal or hilar mass or enlarged lymph nodes. There are few small mediastinal lymph nodes nonspecific. LUNGS AND PLEURAL SPACES: COPD changes. There is a 12 mm noncalcified somewhat irregular parenchymal opacity in the right lung base posteriorly image 73. This could be due to post inflammatory change such as scarring or neoplastic process. A well-circumscribed oval nodule is present in the right lower lobe measuring 2 cm AP and 1.3 cm transverse. No calcifications evident within this lesion. The margins are smooth. No obvious internal fat density or air bronchograms. Are few small nodular opacities anterior to the larger nodule. There is calcified granuloma in the left upper lobe. There are a few small nodular opacities in the pleural and subpleural regions nonspecific. No effusions or infiltrates. BONY STRUCTURES: No acute bony abnormalities apparent. UPPER ABDOMEN: Unremarkable. ADDITIONAL FINDINGS: No other significant abnormalities. IMPRESSION: 1. There are 2 pulmonary nodules present 1 of which is well-circumscribed and is isodense in the right lower lobe. The other nodule is in the right lower lobe posteriorly and has somewhat irregular margins. Both are described above. Suggest PET-CT for further evaluation. If that is not performed then, would recommend a 3 month follow-up without and with contrast. 2. COPD changes Dictated by: Gelacio Shah MD 02/03/2021 09:14 Gelacio Shah MD in [place] 02/03/2021 09:14
== END ==
PROVIDERS: PCP Emergency Medicine; Visit Provider Internal Medicine Cardiovascular Disease
DX: R68.89 Other general symptoms and signs (principal); I50.9 Heart failure, unspecified
CPT/HCPCS: 71250; 93306

== ENCOUNTER → 2021-02-19 08:19 | Outpatient (CLI) | payer MEDICARE, MEDICAID, SELFPAY ==
[2021-02-19 08:47] LABS: Basophils # 0.1 K/mm3 (0-0.2); Basophils % 0.6 % (0.1-2.0); Eosinophils # 0.4 K/mm3 (0.0-0.4); Eosinophils % 4.1 % (0.1-12.0); Hematocrit 40.6 % (37.0-47.0); Hemoglobin 13.7 g/dL (12.2-16.2); Lymphocytes # 2.2 K/mm3 (0.7-4.5); Lymphocytes % 23.1 % (10-50); Mean Corpuscular HGB Conc 33.8 g/dL (31.8-35.4); Mean Corpuscular Hemoglobin 30.8 pg (27.0-31.2); Mean Corpuscular Volume 91.1 fl (81-99); Mean Platelet Volume 8.4 fl (7.4-10.4); Monocytes # 0.5 K/mm3 (0.1-1.0); Monocytes % 5.7 % (1.7-9.3); Neutrophils # 6.3 K/mm3 (1.8-7.8); Neutrophils % 66.6 % (37.0-80.0); Platelet Count 285 K/mm3 (142-424); Red Blood Count 4.46 M/mm3 (4.20-5.40); Red Cell Distribution Width 13.1 % (11.5-17.5); White Blood Count 9.5 K/mm3 (4.8-10.8)
[2021-02-19 10:20] LABS: Chloride 104 mmol/L (98-107); Potassium 3.8 mmoL/L (3.5-5.1); Sodium 138 mmol/L (136-145)
[2021-02-19 10:23] LABS: Anion Gap 9.8 mEq/L (5-15); Blood Urea Nitrogen 10 mg/dl (7-17); Calcium 8.6 mg/dl (8.4-10.2); Carbon Dioxide 28 mmol/L (22.0-30.0); Estimated Glomerular Filt Rate 63 ml/min (>60); GFR (African American) 77 ML/MIN (>60); Glucose 93 mg/dl (74-100)
== END ==
PROVIDERS: Visit Provider Internal Medicine Cardiovascular Disease
DX: E26.9 Hyperaldosteronism, unspecified (principal); F17.200 Nicotine dependence, unspecified, uncomplicated; I15.2 Hypertension secondary to endocrine disorders; I20.8 Other forms of angina pectoris; I50.9 Heart failure, unspecified; I73.9 Peripheral vascular disease, unspecified; R06.00 Dyspnea, unspecified; R09.89 Other specified symptoms and signs involving the circulatory and respiratory systems; R60.0 Localized edema; R94.31 Abnormal electrocardiogram [ECG] [EKG]; E78.49 Other hyperlipidemia; Z01.812 Encounter for preprocedural laboratory examination; Z11.52 Encounter for screening for COVID-19
CPT/HCPCS: 36415; 80048; 85025; U0003

== ENCOUNTER 2021-02-22 08:29 | Day surgery (SDC) | payer MEDICARE, MEDICAID, SELFPAY ==
[2021-02-22] VITALS (19 sets, daily range): BP systolic 117–152; BP diastolic 70–87; PULSE 58–73; RESP 16; TEMP 36.8; O2SAT 93–97; BMI 40.0
--- NOTE | 2021-02-22 07:13 | IR_ITS ---
APPROVED REPORT Patient Location: Outpatient Real Estate Investor: BARTOLOME Briceno RT (R) PROCEDURES Right heart catheterization Left heart catheterization Left ventriculogram Selective coronary angiogram Catheter placed in the abdominal aorta Abdominal aortogram Bilateral iliofemoral runoff Catheter placement in the left subclavian artery Left subclavian artery angiogram INDICATION Angina pectoris, Pulmonary hypertension, Peripheral artery disease, [place] claudication class III Informed consent was obtained prior to the procedure. COMPLICATIONS NONE Estimated Blood Loss: LESS THAN 10 ML TECHNIQUE 1% lidocaine used anesthetize the left groin left femoral artery and vein were accessed via the Salinger technique a 4 Burundian 7 Burundian sheath were placed in the artery vein respectively. [place]-Manuel catheter was floated in the pulmonary artery where right heart catheterization was performed and saturations were obtained. Following this a JL4 JR4 catheter used to perform left heart catheterization left ventriculogram and selective coronary angiogram. Pigtail catheter was then placed in the abdominal aorta through the arterial sheath and abdominal aortography was performed. The catheter was repositioned and bilateral iliofemoral off was performed. At the end of the procedure the patient was transferred to the postop putting in stable condition for sheath removal ANGIOGRAPHIC RESULTS The left main artery Is a distal concentric 80% stenosis The left anterior descending artery There is an ostial 80% stenosis followed by proximal 30% stenosis with mid vessel diffuse 30% disease The circumflex artery Is a dominant vessel which has a 50 to 60% concentric stenosis in a moderate-sized first obtuse marginal artery The right coronary artery Is a nondominant vessel supplying into the right ventricle has a proximal concentric 70% followed by an additional 70% followed by mid vessel 30% stenoses The [place]RO[place] ventriculogram reveals Normal 65% The left ventricular end-diastolic pressure Less than 10 mmHg Right atrial pressure 7 mmHg Right ventricular pressure 33/15 mmHg Pulmonary occlusion pressure 10 mmHg Right atrial saturation 82% Pulmonary saturation 83% Right renal artery singular and has an ostial proximal 50% stenosis. Left renal artery singular and has proximal 30 to 40% stenosis Infrarenal abdominal aorta is mildly atheromatous with no stenosis greater than 10% Right common iliac artery has a distal concentric 90% stenosis. The right internal iliac artery is patent. The right external iliac artery has mild atheromatous plaque. The right common femoral artery is normal. The right profunda femoris artery is normal. The right superficial femoral artery is patent and has mild 30% diffuse atheromatous plaque. The right popliteal artery is patent. There is three-vessel runoff below the right knee The left common iliac artery is widely patent the left internal iliac artery has mild proximal 30% stenosis. The left external iliac artery has a proximal 30% stenosis the left common femoral artery is normal the left profunda femoris artery is normal. The left superficial femoral artery is widely patent with mild proximal 30% atheromatous plaque. The left popliteal artery is widely patent. Below the knee there is three-vessel runoff to the ankle The left subclavian artery and left MORTENSEN are widely patent IMPRESSION Severe distal left main coronary disease as described above Vestigial right coronary artery which is severely diseased but does not supply the left ventricle Normal ejection fraction Normal left ventricular filling pressure Mild pulmonary hypertension Moderate right renal artery
[2021-02-22 15:02] LABS: CATHL Arterial O2 SAT 83.5 % (90-100); CATHL Venous O2 SAT 82.5 % (75-80)
== END 2021-02-22 15:36 | disposition home or self-care (01) ==
PROVIDERS: PCP Emergency Medicine; Visit Provider Internal Medicine
DX: I11.0 Hypertensive heart disease with heart failure; I50.33 Acute on chronic diastolic (congestive) heart failure; I70.223 Atherosclerosis of native arteries of extremities with rest pain, bilateral legs; I70.1 Atherosclerosis of renal artery; R06.00 Dyspnea, unspecified; R60.0 Localized edema; E78.5 Hyperlipidemia, unspecified; F17.210 Nicotine dependence, cigarettes, uncomplicated; E66.01 Morbid (severe) obesity due to excess calories; Z68.41 Body mass index [BMI] 40.0-44.9, adult; E26.9 Hyperaldosteronism, unspecified; I27.20 Pulmonary hypertension, unspecified
CPT/HCPCS: 36225; 36247; 75716; 82810; 93458; 99152; 99153; C1725; C1769; C1894; J1644; Q9966; Q9967

== ENCOUNTER 2021-02-23 08:40 | Day surgery (SDC) | payer MEDICARE, MEDICAID, SELFPAY ==
[2021-02-23] VITALS (11 sets, daily range): BP systolic 106–154; BP diastolic 62–104; PULSE 63–81; RESP 13–18; TEMP 36.6; O2SAT 90–99; BMI 40.0
--- NOTE | 2021-02-23 | IR_ITS ---
APPROVED REPORT Patient Location: Outpatient Soils Analyst: BARTOLOME Davies RT (R) PROCEDURES Right retrograde femoral angiogram Bare-metal stent deployment to the right common and external iliac artery INDICATION [place] claudication class III, Peripheral artery disease, Atherosclerosis of the right common and external iliac artery Informed consent was obtained prior to the procedure. COMPLICATIONS None Estimated Blood Loss: Less than 10 mls TECHNIQUE 1% lidocaine used to anesthetize the right femoral groin. The right femoral artery was accessed via the Seldinger technique, 6fr sheath inserted. Using fluoroscopic guidance the wire was advanced through right iliac into abdominal aorta. Therapeutic heparin was administered giving a therapeutic ACT. Retrograde angiography was performed. The short sheath was exchanged for a 23 cm 6 Montenegrin sheath an 8 mm x 27 mm balloon mounted stent was deployed at 15 niall reducing the severe stenosis to 0%. Excellent angiographic results were obtained. At the end of the procedure the apparatus was removed the groin was reprepped closure changed sheath was removed good hemostasis was achieved with a TR banding patient was transferred to the postop holding in stable condition IMPRESSION Successful stenting of the right common and external iliac artery severe disease reduced to 0% with 1 drug-eluting stent PLAN 1. Aspirin only with no plans for Plavix at this time 2. [facility] for [facility] urgent coronary artery bypass surgery evaluation 3. Continue high intensity statin with goal LDL less than 55 4. No rehabilitation at this time until after coronary artery bypass surgery 5. Risk factor modification Electronically signed by : Randy Jensen, 02/23/2021 10:29:43
[2021-02-23 09:42] LABS: Basophils # 0.1 K/mm3 (0-0.2); Basophils % 0.6 % (0.1-2.0); Eosinophils # 0.4 K/mm3 (0.0-0.4); Hematocrit 39.7 % (37.0-47.0); Hemoglobin 13.4 g/dL (12.2-16.2); Lymphocytes # 1.8 K/mm3 (0.7-4.5); Lymphocytes % 19.4 % (10-50); Mean Corpuscular HGB Conc 33.8 g/dL (31.8-35.4); Mean Corpuscular Hemoglobin 30.5 pg (27.0-31.2); Mean Corpuscular Volume 90.2 fl (81-99); Mean Platelet Volume 7.6 fl (7.4-10.4); Monocytes # 0.4 K/mm3 (0.1-1.0); Monocytes % 4.6 % (1.7-9.3); Neutrophils # 6.7 K/mm3 (1.8-7.8); Neutrophils % 71.5 % (37.0-80.0); Platelet Count 269 K/mm3 (142-424); White Blood Count 9.4 K/mm3 (4.8-10.8)
[2021-02-23 09:53] LABS: Chloride 104 mmol/L (98-107); Potassium 3.9 mmoL/L (3.5-5.1); Sodium 138 mmol/L (136-145)
[2021-02-23 09:56] LABS: Anion Gap 7.9 mEq/L (5-15); Blood Urea Nitrogen 10 mg/dl (7-17); Carbon Dioxide 30 mmol/L (22.0-30.0); Creatinine Clearance Estimated 104 mL/min (50-200); Estimated Glomerular Filt Rate 63 ml/min (>60); GFR (African American) 77 ML/MIN (>60)
[2021-02-23 09:57] LABS: Calcium 8.5 mg/dl (8.4-10.2); Glucose 97 mg/dl (74-100)
[2021-02-23 12:07] LABS: CATHL Activated Clotting Time > 400 SEC (74-125)
--- NOTE | 2021-02-23 14:46 | HMH.PHACLD ---
Patience Shi has received discharge medication counseling on the following medications: PATIENT TO BE D/C ON ASPIRIN 81 MG DAILY AND ATORVASTATIN 40 MG HS. MD NOT STARTING PLAVIX OR BRILINTA AT THIS TIME PER MD NOTE.
== END 2021-02-23 13:33 | disposition home or self-care (01) ==
LOC: CATHLAB 08:42
PROVIDERS: PCP Emergency Medicine; Visit Provider Internal Medicine
DX: I70.223 Atherosclerosis of native arteries of extremities with rest pain, bilateral legs (principal); I11.0 Hypertensive heart disease with heart failure; I50.33 Acute on chronic diastolic (congestive) heart failure; I70.1 Atherosclerosis of renal artery; I27.20 Pulmonary hypertension, unspecified; F17.210 Nicotine dependence, cigarettes, uncomplicated; E66.01 Morbid (severe) obesity due to excess calories; Z68.41 Body mass index [BMI] 40.0-44.9, adult; E26.9 Hyperaldosteronism, unspecified; I77.1 Stricture of artery
CPT/HCPCS: 37236; 80048; 85025; 85347; 99152; C1725; C1760; C1769; C1876; C1894; J1644; Q9966

== ENCOUNTER → 2021-02-26 11:30 | Outpatient (CLI) | payer MEDICARE, MEDICAID, SELFPAY ==
--- NOTE | 2021-02-26 11:31 | CA_ITS ---
APPROVED REPORT Linen Checker: Brianda Couch FARZANEH Indications Leg Pain Risk Factors RECENT CATH POST 3 DAYS RIGHT GROIN Findings No evidence of pseudoaneurysm, hematoma, or AV fistula of the right groin. Conclusion No evidence of pseudoaneurysm, hematoma, or AV fistula of the right groin. Reported to cardiology Mikey's office Electronically signed by : Gelacio Shah MD 02/26/2021 15:04:40
== END ==
PROVIDERS: PCP Emergency Medicine; Visit Provider Physician Assistant
DX: E26.9 Hyperaldosteronism, unspecified (principal); E78.5 Hyperlipidemia, unspecified; F17.200 Nicotine dependence, unspecified, uncomplicated; I11.0 Hypertensive heart disease with heart failure; I20.8 Other forms of angina pectoris; I27.20 Pulmonary hypertension, unspecified; I50.9 Heart failure, unspecified; I73.9 Peripheral vascular disease, unspecified; R06.00 Dyspnea, unspecified; R09.89 Other specified symptoms and signs involving the circulatory and respiratory systems; R10.31 Right lower quadrant pain; R60.0 Localized edema; R94.31 Abnormal electrocardiogram [ECG] [EKG]
CPT/HCPCS: 93926

== ENCOUNTER 2021-04-21 14:12 | Emergency (ER) | payer MEDICARE, MEDICAID, SELFPAY ==
[2021-04-21 14:15] VITALS: BP 157/97; PULSE 73; RESP 18; TEMP 36.9; O2SAT 96; BMI 39.5
[2021-04-21 14:41] VITALS: BP 157/97; PULSE 73; RESP 18; TEMP 36.9; O2SAT 96; BMI 39.5
[2021-04-21 15:14] LABS: UTC Strep Screen (Rapid) Positive (Negative)
--- NOTE | 2021-04-21 15:20 | HMH.EDUTC ---
[facility] Disposition Clinical Impression: Strep throat Disposition: Home, Self-Care Condition on Discharge: Good Instructions: Strep Throat, DI for Strep Throat Additional Instructions: Drink plenty of fluids. Take tylenol or ibuprofen for pain or fever. Take the medications as directed. Follow up with your regular doctor. GO TO THE ER FOR ANY WORSENING SYMPTOMS Throw your tooth brush away and get a new one. Prescriptions: Amoxicillin [Amoxicillin 500mg Tab] 500 mg PO TID 10 Days #30 tab Transmission Status: Received by [facility] Referrals: Kingsley Stinson MD [Primary Care Provider] - Time of Disposition: 15:23 Medical Decision Making - Medical Records Medical records reviewed: No: I reviewed the patient's medical records. - Neo Inquiry Pt receiving controlled substance: No Vital Signs: 04/21/21 14:15 04/21/21 14:41 04/21/21 15:38 Temperature 98.5 F 98.5 F 98.5 F Temperature Source Oral Oral Pulse Rate 73 Pulse Rate [Right] 73 73 Respiratory Rate 18 18 18 Blood Pressure 157/97 H Blood Pressure [Right Arm] 157/97 H 157/97 H Blood Pressure Mean [Right Arm] 117 117 02 Sat by Pulse Oximetry 96 96 Oxygen Delivery Method Room Air Room Air - Lab Data Lab results reviewed: Yes: I reviewed the patient's lab results. Lab Results 04/21/21 14:50: Strep Scn Rapid Clinic Positive A [facility] HPI - General Stated complaint: SOA, heart surgery patient Time Seen by Provider: 04/21/21 15:20 Mode of Arrival: Ambulatory Source of Information: Patient Limitations: No Limitations Description of Symptoms (Recalled from Triage Doc. by RN): per ER Triage: c/o sneezing, congestion & diarrhea x2 days, subjective fevers. HEENT Symptoms (Recalled from RN notes): No Resp Symptoms (Recalled from RN notes): No Skin Symptoms (Recalled from RN notes): No MS Symptoms (Recalled from RN notes): No Functional Status (Recalled from RN notes): wnl - History of Present Illness Provider Complaint: She states that for the past 2 days she has had sore throat, chilling and she has felt bad. - Related Data Home Medications Medication Instructions Recorded Confirmed carvedilol 25 mg tablet 37.5 mg PO BID tab 01/08/21 02/23/21 hydroxyzine HCl 25 mg tablet 25 mg PO TID PRN tab 01/08/21 02/23/21 omeprazole 40 mg capsule,delayed 40 mg PO DAILY cap 01/08/21 02/23/21 release sucralfate 1 gram tablet 1 g PO QACHS tab 01/08/21 02/23/21 Aspirin [Aspirin 81mg EC Tab] 81 mg PO DAILY 02/22/21 02/23/21 Atorvastatin Calcium [Lipitor 40mg 40 mg PO HS 02/22/21 02/23/21 Tablet*] Fluticasone/Vilanterol [Breo 1 inh INHALATION DAILY 02/22/21 02/23/21 Ellipta] Levothyroxine Sodium 200 mcg PO DAILY 02/22/21 02/23/21 [Levothyroxine 200mcg (0.2mg) Tab] Levothyroxine Sodium [Synthroid 25 mcg PO DAILY 02/22/21 02/23/21 25mcg (0.025mg) tablet] Losartan Potassium [Cozaar 100mg 100 mg PO DAILY 02/22/21 02/23/21 Tablets] Spironolactone See Rx Instructions .ROUTE .COMPLEX 02/22/21 02/23/21 Previous Rx's Medication Instructions Recorded cyclobenzaprine 10 mg tablet 10 mg PO TID PRN #30 tab 12/02/20 Amoxicillin [Amoxicillin 500mg Tab] 500 mg PO TID 10 Days #30 tab 04/21/21 Allergies Allergy/AdvReac Type Severity Reaction Status Date / Time No Known Allergies Allergy Verified 02/05/21 11:24 - Worker's Comp Is this a Worker's Comp case?: No [facility] History - Hepatitis A Screen Drug use history?: No High risk sexual behaviors?: No History of sexually transmitted infection?: No Currently employed?: No Childcare worker?: No Do you have indoor plumbing?: Yes Do you have electricity?: Yes Attestation statement:: This patient has been screened for Hepatitis A risk factors. I have reviewed the patient's past medical history: Yes Medical History: Reports:: Anxiety, Congestive Heart Failure, Depression, Hyperlipidemia, Hypertension Denies:: Atherosclerotic Heart Dis
[2021-04-21 15:38] VITALS: BP 157/97; PULSE 73; RESP 18; TEMP 36.9; O2SAT 96
== END 2021-04-21 15:39 | disposition home or self-care (01) ==
PROVIDERS: Emergency Provider Nurse Practitioner Family; PCP Emergency Medicine
DX: J02.0 Streptococcal pharyngitis (principal); I10 Essential (primary) hypertension; E78.5 Hyperlipidemia, unspecified; F41.8 Other specified anxiety disorders; Z20.822 Contact with and (suspected) exposure to COVID-19; F17.210 Nicotine dependence, cigarettes, uncomplicated
CPT/HCPCS: G0463; 87880; 99203; U0003

== ENCOUNTER → 2021-04-23 10:43 | Outpatient (CLI) | payer MEDICARE, MEDICAID, SELFPAY ==
[2021-04-23 11:03] LABS: Basophils # 0.1 K/mm3 (0-0.2); Basophils % 1.3 % (0.1-2.0); Eosinophils # 0.5 K/mm3 (0.0-0.4); Eosinophils % 5.8 % (0.1-12.0); Hematocrit 38.4 % (37.0-47.0); Hemoglobin 12.9 g/dL (12.2-16.2); Lymphocytes # 2.8 K/mm3 (0.7-4.5); Lymphocytes % 32.9 % (10-50); Mean Corpuscular HGB Conc 33.4 g/dL (31.8-35.4); Mean Corpuscular Hemoglobin 28.8 pg (27.0-31.2); Mean Corpuscular Volume 86.1 fl (81-99); Mean Platelet Volume 7.6 fl (7.4-10.4); Monocytes # 0.6 K/mm3 (0.1-1.0); Monocytes % 6.5 % (1.7-9.3); Neutrophils # 4.5 K/mm3 (1.8-7.8); Neutrophils % 53.5 % (37.0-80.0); Platelet Count 335 K/mm3 (142-424); Red Blood Count 4.46 M/mm3 (4.20-5.40); Red Cell Distribution Width 13.5 % (11.5-17.5); White Blood Count 8.4 K/mm3 (4.8-10.8)
[2021-04-23 11:28] LABS: Alanine Aminotransferase 20 U/L (12-78); Albumin Level 4.2 g/dl (3.5-5.0); Alkaline Phosphatase 94 U/L (38-126); Aspartate Amino Transferase 27 U/L (14-36); Bilirubin,Direct 0.4 mg/dl (0.0-0.4); Bilirubin,Total 0.4 mg/dl (0.2-1.3); Blood Urea Nitrogen 9 mg/dl (7-17); Calcium 9.1 mg/dl (8.4-10.2); Carbon Dioxide 33 mmol/L (22.0-30.0); Cholesterol 158 mg/dl (140-200); Estimated Glomerular Filt Rate 63 ml/min (>60); GFR (African American) 77 ML/MIN (>60); Glucose 112 mg/dl (74-100); Total Protein,Serum 7.4 g/dl (6.3-8.2); Triglycerides 153 mg/dl (30-150); VLDL Cholesterol 31 mg/dL (0-40)
[2021-04-23 11:29] LABS: Chol/HDL Ratio 5.4 (1-3.5); HDL Cholesterol 29 mg/dl (40-60)
[2021-04-23 11:32] LABS: Chloride 100 mmol/L (98-107); Sodium 143 mmol/L (136-145)
[2021-04-23 11:40] LABS: Direct LDL Cholesterol 93.04 mg/dL (100-129)
[2021-04-23 11:43] LABS: Free T4 (Free Thyroxine) 2.34 ng/dl (0.78-2.19)
[2021-04-23 11:58] LABS: Thyroid Stimulating Hormone 0.17 uIU/mL (0.465-4.68)
== END ==
PROVIDERS: Visit Provider Internal Medicine Cardiovascular Disease
DX: E26.9 Hyperaldosteronism, unspecified (principal); E78.5 Hyperlipidemia, unspecified; F17.200 Nicotine dependence, unspecified, uncomplicated; I20.8 Other forms of angina pectoris; I27.20 Pulmonary hypertension, unspecified; I50.9 Heart failure, unspecified; I73.9 Peripheral vascular disease, unspecified; R06.00 Dyspnea, unspecified; R60.0 Localized edema; R94.31 Abnormal electrocardiogram [ECG] [EKG]; I11.0 Hypertensive heart disease with heart failure
CPT/HCPCS: 36415; 80048; 80061; 80076; 84439; 84443; 85025

== ENCOUNTER → 2021-04-28 13:37 | Outpatient (CLI) | payer MEDICARE, MEDICAID, SELFPAY ==
--- NOTE | 2021-04-28 13:39 | CA_ITS ---
APPROVED REPORT EXAM: Comprehensive 2D, Doppler, and color-flow Echocardiogram Air And Water Tester: Jaclyn Whipple CRT Ht: 5 ft 6 in Wt: 238lbs BSA: 2.15 BP: 134/89 mmHg Indications: Shortness of Breath R06.02, Hypertension I10, Peripheral Edema R60.0, Chest Pain R07.89, CABG 03/01/21 M-Mode Dimensions RVDd 3.19 cm (0.9-2.6) LVDd 4.29 cm (3.5-5.7) LVDs 3.59 cm (3.5-5.7) IVSd 2.41 cm (0.6-1.1) PWd 1.02 cm (0.6-1.1) EF (Teich) 34.50% FS 16.30% EDV (Teich) 82.60 mL ESV (Teich) 54.10 mL Conclusion 1. Limited echocardiogram was performed to evaluate left ventricular systolic function. Endocardial surfaces are very poorly visualized. 2. Visually estimated ejection fraction 50% with no regional wall motion abnormality in the obtained views. Electronically signed by : Gray Coker MD 04/29/2021 16:06:34
== END ==
PROVIDERS: PCP Emergency Medicine; Visit Provider Internal Medicine Cardiovascular Disease
DX: Z20.822 Contact with and (suspected) exposure to COVID-19 (principal); I25.10 Atherosclerotic heart disease of native coronary artery without angina pectoris; R06.02 Shortness of breath; R07.89 Other chest pain
CPT/HCPCS: 93308; U0003

== ENCOUNTER → 2021-05-04 14:17 | Outpatient (CLI) | payer MEDICARE, MEDICAID, SELFPAY ==
[2021-05-04 14:39] LABS: Anion Gap 10.6 mEq/L (5-15); Blood Urea Nitrogen 7 mg/dl (7-17); Calcium 8.7 mg/dl (8.4-10.2); Carbon Dioxide 32 mmol/L (22.0-30.0); Chloride 102 mmol/L (98-107); Estimated Glomerular Filt Rate 73 ml/min (>60); GFR (African American) 88 ML/MIN (>60); Glucose 88 mg/dl (74-100); Potassium 3.6 mmoL/L (3.5-5.1); Sodium 141 mmol/L (136-145)
[2021-05-04 14:55] LABS: Free Thyroxine Index 3.8 ug/dL (5.93-13.13); T4 (Thyroxine) 11.2 ug/dl (5.53-11.0); Triiodothryronine (T3) Uptake 34 % (23.5-40.5)
[2021-05-04 15:09] LABS: Thyroid Stimulating Hormone 1.15 uIU/mL (0.465-4.68)
== END ==
PROVIDERS: Visit Provider Nurse Practitioner Family
DX: E07.9 Disorder of thyroid, unspecified (principal)
CPT/HCPCS: 80048; 84436; 84443; 84479

== ENCOUNTER → 2021-07-21 09:48 | Outpatient (CLI) | payer MEDICARE, MEDICAID, SELFPAY ==
--- NOTE | 2021-07-21 10:01 | XR_ITS ---
PROCEDURE: XR CHEST 2V CLINICAL HISTORY: chest soreness COMPARISON: CR CXR2V XR chest 2V from 10/14/2017 CR CXR2V XR chest 2V from 05/30/[address] abdomen pelvis wo con from 05/30/[address] CHEST WO CON from 02/02/2021 FINDINGS: Normal heart size. Prior CABG. 16 mm nodule is present in the right lower lobe. This nodule was demonstrated on a previous CT scan of 02/02/2021. Nodular density also noted in the lung apex on the lateral view measuring 13 mm. The remaining lungs are clear. No acute bony abnormalities. IMPRESSION: 17 mm nodule in the right lower lobe. This corresponds to the nodule described on the CT scan of 02/02/2021. This nodule is becoming more prominent on the CT scan and the chest x-ray. 13 mm nodular opacity in the lung apex on the lateral view. Neoplasm is considered. PET-CT was suggested on the previous CT report. Has that been performed? If not, would recommend repeating CT scan to for further evaluation.. Dictated by: Gelacio Shah MD 07/21/2021 11:01 Gelacio Shah MD in [place] 07/21/2021 11:01
[2021-07-21 10:19] LABS: Basophils # 0.1 K/mm3 (0-0.2); Basophils % 0.8 % (0.1-2.0); Eosinophils # 0.3 K/mm3 (0.0-0.4); Eosinophils % 3.1 % (0.1-12.0); Hematocrit 39.9 % (37.0-47.0); Hemoglobin 13.2 g/dL (12.2-16.2); Lymphocytes # 2.8 K/mm3 (0.7-4.5); Lymphocytes % 31.6 % (10-50); Mean Corpuscular HGB Conc 33.1 g/dL (31.8-35.4); Mean Corpuscular Hemoglobin 28.9 pg (27.0-31.2); Mean Corpuscular Volume 87.2 fl (81-99); Mean Platelet Volume 7.7 fl (7.4-10.4); Monocytes # 0.5 K/mm3 (0.1-1.0); Monocytes % 5.3 % (1.7-9.3); Neutrophils # 5.2 K/mm3 (1.8-7.8); Neutrophils % 59.2 % (37.0-80.0); Platelet Count 338 K/mm3 (142-424); Red Blood Count 4.57 M/mm3 (4.20-5.40); Red Cell Distribution Width 16.3 % (11.5-17.5); White Blood Count 8.8 K/mm3 (4.8-10.8)
[2021-07-21 11:09] LABS: Alanine Aminotransferase 14 U/L (12-78); Albumin Level 3.9 g/dl (3.5-5.0); Alkaline Phosphatase 91 U/L (38-126); Aspartate Amino Transferase 19 U/L (14-36); Bilirubin,Total 0.3 mg/dl (0.2-1.3); Blood Urea Nitrogen 8 mg/dl (7-17); Calcium 8.6 mg/dl (8.4-10.2); Carbon Dioxide 34 mmol/L (22.0-30.0); Chloride 99 mmol/L (98-107); Chol/HDL Ratio 5.2 (1-3.5); Cholesterol 161 mg/dl (140-200); Estimated Glomerular Filt Rate 73 ml/min (>60); GFR (African American) 88 ML/MIN (>60); Glucose 90 mg/dl (74-100); HDL Cholesterol 31 mg/dl (40-60); Sodium 139 mmol/L (136-145); Total Protein,Serum 6.7 g/dl (6.3-8.2); Triglycerides 161 mg/dl (30-150); VLDL Cholesterol 32 mg/dL (0-40)
[2021-07-21 11:22] LABS: Direct LDL Cholesterol 100.97 mg/dL (100-129)
[2021-07-21 11:23] LABS: Anion Gap 9.1 mEq/L (5-15); Potassium 3.1 mmoL/L (3.5-5.1)
[2021-07-21 11:42] LABS: Thyroid Stimulating Hormone 2.06 uIU/mL (0.465-4.68)
[2021-07-21 12:25] LABS: Troponin I < 0.01 ng/ml (0.00-0.034)
[2021-07-21 12:45] LABS: Bilirubin,Direct 0.3 mg/dl (0.0-0.4)
== END ==
PROVIDERS: Visit Provider Urology
DX: E26.9 Hyperaldosteronism, unspecified (principal); E87.6 Hypokalemia; F17.200 Nicotine dependence, unspecified, uncomplicated; F32.A Depression, unspecified; I20.8 Other forms of angina pectoris; I27.20 Pulmonary hypertension, unspecified; I50.9 Heart failure, unspecified; I73.9 Peripheral vascular disease, unspecified; R05.9 Cough, unspecified; R06.00 Dyspnea, unspecified; R60.0 Localized edema; T81.89XA Other complications of procedures, not elsewhere classified, initial encounter; Z95.1 Presence of aortocoronary bypass graft
CPT/HCPCS: 36415; 71046; 80048; 80061; 80076; 84439; 84443; 84484; 85025

== ENCOUNTER → 2021-07-28 14:27 | Outpatient (CLI) | payer MEDICARE, MEDICAID, SELFPAY ==
[2021-07-28 16:17] LABS: Anion Gap 10.4 mEq/L (5-15); Blood Urea Nitrogen 6 mg/dl (7-17); Calcium 8.6 mg/dl (8.4-10.2); Carbon Dioxide 32 mmol/L (22.0-30.0); Chloride 102 mmol/L (98-107); Estimated Glomerular Filt Rate 63 ml/min (>60); GFR (African American) 77 ML/MIN (>60); Glucose 92 mg/dl (74-100); Potassium 3.4 mmoL/L (3.5-5.1); Sodium 141 mmol/L (136-145)
== END ==
PROVIDERS: Visit Provider Urology
DX: E11.9 Type 2 diabetes mellitus without complications (principal); E78.5 Hyperlipidemia, unspecified; I10 Essential (primary) hypertension; I25.10 Atherosclerotic heart disease of native coronary artery without angina pectoris
CPT/HCPCS: 36415; 80048

== ENCOUNTER → 2021-08-07 12:43 | Outpatient (CLI) | payer MEDICARE, MEDICAID, SELFPAY ==
[2021-08-07 12:57] LABS: Basophils # 0.1 K/mm3 (0-0.2); Basophils % 1.5 % (0.1-2.0); Eosinophils # 0.4 K/mm3 (0.0-0.4); Eosinophils % 3.7 % (0.1-12.0); Hematocrit 44.4 % (37.0-47.0); Hemoglobin 14.8 g/dL (12.2-16.2); Lymphocytes # 2.6 K/mm3 (0.7-4.5); Lymphocytes % 27.3 % (10-50); Mean Corpuscular HGB Conc 33.3 g/dL (31.8-35.4); Mean Corpuscular Hemoglobin 29.2 pg (27.0-31.2); Mean Corpuscular Volume 87.5 fl (81-99); Monocytes # 0.4 K/mm3 (0.1-1.0); Monocytes % 3.9 % (1.7-9.3); Neutrophils % 63.6 % (37.0-80.0); Platelet Count 496 K/mm3 (142-424); Red Blood Count 5.08 M/mm3 (4.20-5.40); Red Cell Distribution Width 16.8 % (11.5-17.5); White Blood Count 9.5 K/mm3 (4.8-10.8)
[2021-08-07 14:01] LABS: Chloride 98 mmol/L (98-107); Potassium 5.3 mmoL/L (3.5-5.1); Sodium 138 mmol/L (136-145)
[2021-08-07 14:04] LABS: Alanine Aminotransferase 15 U/L (12-78); Albumin Level 4.5 g/dl (3.5-5.0); Albumin/Globulin Ratio 1.4 (1.1-1.8); Alkaline Phosphatase 114 U/L (38-126); Anion Gap 15.3 mEq/L (5-15); Aspartate Amino Transferase 23 U/L (14-36); Bilirubin,Total 0.3 mg/dl (0.2-1.3); Blood Urea Nitrogen 15 mg/dl (7-17); Calcium 9.7 mg/dl (8.4-10.2); Carbon Dioxide 30 mmol/L (22.0-30.0); Estimated Glomerular Filt Rate 46 ml/min (>60); GFR (African American) 55 ML/MIN (>60); Globulin 3.2 g/dL (1.3-3.2); Glucose 93 mg/dl (74-100); Total Protein,Serum 7.7 g/dl (6.3-8.2)
[2021-08-07 14:05] LABS: Magnesium 1.8 mg/dl (1.6-2.3)
== END ==
PROVIDERS: Visit Provider Nurse Practitioner Family
DX: R25.2 Cramp and spasm (principal); I25.10 Atherosclerotic heart disease of native coronary artery without angina pectoris
CPT/HCPCS: 36415; 80053; 83735; 85025

== ENCOUNTER 2021-08-08 15:23 | Emergency (ER) | payer MEDICARE, MEDICAID, SELFPAY ==
[2021-08-08 15:54] VITALS: BMI 37.9
[2021-08-08 15:56] VITALS: BP 155/109; PULSE 78; RESP 18; TEMP 36.8; O2SAT 98; BMI 37.9
[2021-08-08 16:19] LABS: Chloride 96 mmol/L (98-107); Potassium 5.1 mmoL/L (3.5-5.1); Sodium 136 mmol/L (136-145)
[2021-08-08 16:21] LABS: Alanine Aminotransferase 17 U/L (12-78); Aspartate Amino Transferase 27 U/L (14-36); Blood Urea Nitrogen 16 mg/dl (7-17); Creatinine Clearance Estimated 82 mL/min (50-200); Estimated Glomerular Filt Rate 46 ml/min (>60); GFR (African American) 55 ML/MIN (>60)
[2021-08-08 16:22] LABS: Albumin Level 4.7 g/dl (3.5-5.0); Albumin/Globulin Ratio 1.3 (1.1-1.8); Alkaline Phosphatase 130 U/L (38-126); Anion Gap 14.1 mEq/L (5-15); Bilirubin,Total 0.6 mg/dl (0.2-1.3); Calcium 9.7 mg/dl (8.4-10.2); Carbon Dioxide 31 mmol/L (22.0-30.0); Creatine Kinase 155 U/L (30-135); Globulin 3.7 g/dL (1.3-3.2); Glucose 101 mg/dl (74-100); Total Protein,Serum 8.4 g/dl (6.3-8.2)
[2021-08-08 16:23] LABS: Basophils # 0.1 K/mm3 (0-0.2); Basophils % 1.1 % (0.1-2.0); Eosinophils # 0.3 K/mm3 (0.0-0.4); Hematocrit 46.4 % (37.0-47.0); Hemoglobin 15.4 g/dL (12.2-16.2); Lymphocytes # 2.7 K/mm3 (0.7-4.5); Lymphocytes % 31.8 % (10-50); Mean Corpuscular HGB Conc 33.1 g/dL (31.8-35.4); Mean Corpuscular Hemoglobin 28.8 pg (27.0-31.2); Mean Corpuscular Volume 86.9 fl (81-99); Monocytes # 0.4 K/mm3 (0.1-1.0); Monocytes % 4.9 % (1.7-9.3); Neutrophils # 5.1 K/mm3 (1.8-7.8); Neutrophils % 59.3 % (37.0-80.0); Platelet Count 512 K/mm3 (142-424); Red Blood Count 5.35 M/mm3 (4.20-5.40); Red Cell Distribution Width 16.8 % (11.5-17.5); White Blood Count 8.5 K/mm3 (4.8-10.8)
[2021-08-08 16:28] LABS: C-Reactive Protein 2.9 mg/L (0-4)
[2021-08-08 16:48] LABS: Erythrocyte Sedimentation Rate 16 mm/hr (0-30)
[2021-08-08 16:53] LABS: Microscopic, Urine URINE MICROSCOPIC (MICROSCOPIC)
[2021-08-08 17:13] LABS: Appearance,Urine CLEAR (Clear); Bilirubin,Urine Negative (Negative); Blood, Urine Negative (Negative); Color,Urine YELLOW (Yellow); Glucose,Urine (UA) Negative (Negative); Ketones,Urine Negative (Negative); Leukocyte Esterase,Urine Negative (Negative); Nitrate,Urine Negative (Negative); Protein,Urine Negative (Negative); Specific Gravity, Urine <= 1.005 (1.005-1.030); Urobilinogen,Urine 0.2 EU/dl (0.2)
[2021-08-08 17:24] LABS: Amphetamine/Metha Screen,Urine Negative ng/ml (<1000)
[2021-08-08 17:25] LABS: Barbiturates Screen,Urine Negative ng/ml (<200); Benzodiazepines Screen,Urine Negative ng/ml (<200)
[2021-08-08 17:26] LABS: Cannabinoid Screen,Urine Positive ng/ml (<50)
[2021-08-08 17:27] LABS: Cocaine Screen,Urine Negative ng/ml (<300); Methadone Screen,Urine Negative ng/ml (<300)
[2021-08-08 17:28] LABS: Opiate Screen,Urine Negative ng/ml (<300); Phencyclidine Screen,Urine Negative ng/ml (<25)
[2021-08-08 17:35] LABS: Bacteria,Urine Trace /lpf
--- NOTE | 2021-08-08 17:48 | HMH.EDGENADL ---
ED Disposition Clinical Impression: Muscle spasm Disposition: Home, Self-Care Condition on Discharge: Fair Instructions: DI for Muscle Spasm Additional Instructions: Diazepam as prescribed. See your primary care provider tomorrow for follow-up. He can be seen in their office tomorrow at 10 AM or 1 PM. Additional instructions for CONTROLLED SUBSTANCES: You have been prescribed a medication that is a controlled substance. Controlled substances include pain medications known as opiates and sedative nerve medications known as benzodiazepines. Tramadol, fioricet, and gabapentin are also controlled substances. Some common opiates include: Codeine (such as Tylenol #3) Hydrocodone (Vicodin, Lortab, Lorcet, [place]) Oxycodone (Percocet, Percodan, Oxycodone, Oxy IR) Some common benzodiazepines include: Diazepam (Valium) Lorazepam (Ativan) Alprazolam (Xanax) Clonazepam (Klonopin) Oxazepam (Serax) All of these controlled substances are highly addictive and frequently abused. Misuse can and frequently does lead to addiction as well as overdose and . Medication should be stored in a locked cabinet or other secure storage unit. Do not store the medication in a motor vehicle. Short term supplies, 3 days or less, are prescribed because of the highly addictive nature of the medication. Any of the controlled substance medication NOT taken should be disposed of properly and NOT SAVED. The recommended method of disposing of unused medications is: Place the medicines in a sealable plastic bag. If the medicine is a solid, crush it or add water to dissolve it. Add something undesirable (cat litter, coffee grounds, etc.) Dispose of sealed bag in household trash Do not flush or pour unused medicines down a sink or drain. Controlled substances should not be shared, given away or sold. Because of the addictive nature and frequent abuse, these medications are sometimes stolen. These medications should be kept in a safe place where they cannot be stolen. Do not keep them in your car or purse. Lost or stolen prescriptions for controlled substances WILL NOT BE REFILLED in this emergency department, regardless of whether a police report was filed. Prescriptions: diazePAM [Valium 5mg tablets] 5 mg PO TIDP PRN #10 tab PRN Reason: Muscle Spasm Transmission Status: Sent to [facility] Referrals: Klaber,Clayton, SORTER LAUNDRY ARTICLES [Primary Care Provider] - - Critical Care Critical Care Time: No Attestation: On 08/08/21, the high probability of a clinically significant, sudden or life threatening deterioration of the following system(s) required my full and direct attention, intervention and personal management. The time I documented below is in addition to time spent performing reported procedures but includes the following listed in this critical care notation. Medical Decision Making - Neo Inquiry Pt receiving controlled substance: Yes Neo was queried for this patient: Yes Risks and benefits of using a controlled substance: were discussed with pt by me Vital Signs: 08/08/21 15:56 Temperature 98.2 F Temperature Source Oral Pulse Rate [Radial] 78 Respiratory Rate 18 Blood Pressure [Right Arm] 155/109 H Blood Pressure Mean [Right Arm] 124 Blood Pressure Position [Right Arm] Sitting 02 Sat by Pulse Oximetry 98 Oxygen Delivery Method Room Air - Lab Data Lab Results 08/08/21 16:00: WBC 8.5, RBC 5.35, Hgb 15.4, Hct 46.4, MCV 86.9, MCH 28.8, MCHC 33.1, RDW 16.8, Plt Count 512 H, MPV 8.0, Neut % (Auto) 59.3, Lymph % (Auto) 31.8, Robertson % (Auto) 4.9, Eos % (Auto) 3.0, Baso % (Auto) 1.1, Neut # (Auto) 5.1, Lymph # (Auto) 2.7, Robertson # (Auto) 0.4, Eos # (Auto) 0.3, Baso # (Auto) 0.1, ESR 16 08/08/21 16:00: Sodium 136, Potassium 5.1, Chloride 96 L, Carbon Dioxide 31 H, Anion Gap 14.1, BUN 16, Creatinine 1.20 H, Estimated Creat Clear 82, Estimated GFR 46 L, Est GFR ( Amer) 55 L, Glucose 101 H, Calcium 9.7, Total B
[2021-08-08 18:42] VITALS: BP 142/74; PULSE 78; RESP 19; TEMP 36.6; O2SAT 98
== END 2021-08-08 18:45 | disposition home or self-care (01) ==
PROVIDERS: Emergency Provider Emergency Medicine; PCP Nurse Practitioner Family
DX: M62.838 Other muscle spasm (principal); I25.10 Atherosclerotic heart disease of native coronary artery without angina pectoris; F41.8 Other specified anxiety disorders; F12.10 Cannabis abuse, uncomplicated; E11.9 Type 2 diabetes mellitus without complications; E03.9 Hypothyroidism, unspecified; F17.210 Nicotine dependence, cigarettes, uncomplicated; I10 Essential (primary) hypertension; E78.5 Hyperlipidemia, unspecified; Z79.899 Other long term (current) drug therapy
CPT/HCPCS: 80053; 80305; 81001; 82550; 85025; 85651; 86140; 96365; 96375; 99283; J2405

== ENCOUNTER → 2021-08-18 14:56 | Outpatient (CLI) | payer MEDICARE, MEDICAID, SELFPAY ==
[2021-08-18 15:55] VITALS: PULSE 73
== END ==
PROVIDERS: PCP Nurse Practitioner Family; Visit Provider Internal Medicine Pulmonary Disease
DX: R06.00 Dyspnea, unspecified (principal)
CPT/HCPCS: 94060; 94618; 94640; 94726; 94729

== ENCOUNTER → 2021-09-01 12:44 | Outpatient (CLI) | payer MEDICARE, MEDICAID, SELFPAY ==
[2021-09-01 13:09] LABS: Basophils # 0.1 K/mm3 (0-0.2); Basophils % 0.8 % (0.1-2.0); Eosinophils # 0.4 K/mm3 (0.0-0.4); Eosinophils % 5.2 % (0.1-12.0); Hematocrit 36.9 % (37.0-47.0); Hemoglobin 12.8 g/dL (12.2-16.2); Lymphocytes # 2.2 K/mm3 (0.7-4.5); Lymphocytes % 27.4 % (10-50); Mean Corpuscular HGB Conc 34.8 g/dL (31.8-35.4); Mean Corpuscular Hemoglobin 30.1 pg (27.0-31.2); Mean Corpuscular Volume 86.4 fl (81-99); Monocytes # 0.4 K/mm3 (0.1-1.0); Monocytes % 4.7 % (1.7-9.3); Platelet Count 378 K/mm3 (142-424); Red Blood Count 4.27 M/mm3 (4.20-5.40); Red Cell Distribution Width 16.5 % (11.5-17.5); White Blood Count 8.1 K/mm3 (4.8-10.8)
[2021-09-01 14:14] LABS: Anion Gap 6.9 mEq/L (5-15); Blood Urea Nitrogen 9 mg/dl (7-17); Carbon Dioxide 29 mmol/L (22.0-30.0); Chloride 104 mmol/L (98-107); Estimated Glomerular Filt Rate 63 ml/min (>60); GFR (African American) 77 ML/MIN (>60); Glucose 111 mg/dl (74-100); Potassium 3.9 mmoL/L (3.5-5.1); Sodium 136 mmol/L (136-145)
== END ==
PROVIDERS: Visit Provider Nurse Practitioner Family
DX: Z01.812 Encounter for preprocedural laboratory examination (principal); Z11.52 Encounter for screening for COVID-19; I20.8 Other forms of angina pectoris
CPT/HCPCS: 36415; 80048; 85025; C9803; U0003; U0005

== ENCOUNTER → 2021-09-06 16:55 | Outpatient (CLI) | payer MEDICARE, MEDICAID, SELFPAY | PROVIDERS: Visit Provider Physician Assistant | DX: Z01.812 Encounter for preprocedural laboratory examination (principal); Z11.52 Encounter for screening for COVID-19; I20.8 Other forms of angina pectoris | CPT/HCPCS: C9803; U0003; U0005 ==

== ENCOUNTER 2021-09-08 09:25 | Day surgery (SDC) | payer MEDICARE, MEDICAID, SELFPAY ==
[2021-09-08] VITALS (22 sets, daily range): BP systolic 92–160; BP diastolic 56–92; PULSE 58–73; RESP 13–20; TEMP 37; O2SAT 90–99; BMI 38.0; BMI 38.2
--- NOTE | 2021-09-08 07:06 | IR_ITS ---
APPROVED REPORT Patient Location: Outpatient Sports Umpire: BARTOLOME Parish RT (R) PROCEDURES Left heart catheterization Left ventriculogram Selective coronary angiogram Catheter placement in the right common iliac artery Right common iliac artery retrograde angiogram Left internal mammary angiography Selective engagement of the saphenous vein graft to the first obtuse marginal artery Drug-eluting stent deployment to the distal left main artery extending into the proximal dominant circumflex artery INDICATION Coronary artery disease, History of coronary bypass surgery, Accelerated angina pectoris, Peripheral artery disease, Known right common iliac artery atherosclerosis with history of stenting Informed consent was obtained prior to the procedure. COMPLICATIONS NONE Estimated Blood Loss: LESS THAN 10 ML TECHNIQUE One percent lidocaine used to anesthetize the right groin. The right femoral artery was accessed via the Seldinger technique and a 5 Indonesian sheath was placed in the right femoral artery. A JL 4, JR4 catheter were used to perform left heart catheterization, left ventriculogram selective coronary angiography as well as selective engagement of the 1 vein graft and the left internal mammary artery. There is some difficulty traversing the iliofemoral circulation due to the peripheral artery disease. Because of this the JL4 catheter was placed in the right common iliac artery and angiography was performed. During the diagnostic and therapeutic angiogram a mini exchange was performed due to the difficulty traversing the vessel at the end of the diagnostic angiogram therapeutic heparin was administered and the 5 Indonesian sheath was exchanged for a 6 Indonesian sheath. An EBU 4 guide catheter was placed in the left main artery and a Choice PT extra-support wire was placed distally in the circumflex artery. A 4 mm x 22 mm resolute Brandan stent was placed in the distal left main artery extending the proximal circumflex artery and deployed at 12 niall. A 4 mm x 12 mm balloon was then placed at the junction of the left main artery and the proximal ostial circumflex artery and then deployed at 20 niall. An additional 5 mm x 8 mm balloon was then placed in the proximal portion of the stent and deployed at 20 niall to post dilate. The balloon was then advanced to the junction of the left main artery and the circumflex artery and deployed at 14 niall in order to further post dilate. GEORGINA-3 flow was present before and after the procedure. At the end of the procedure the apparatus was removed the groin was reprepped gloves were changed sheath however the wire was kinked and I was unable to advance the Perclose device therefore the wire and Perclose device was removed with hemostasis being achieved with manual pressure. There is no development of any hematoma and patient tolerated the procedure well and was then transferred to the postop already in stable condition ANGIOGRAPHIC RESULTS The left main artery Has a distal concentric 80% stenosis The left anterior descending artery Is proximally patent and then has competitive flow from the left internal mammary artery. There are diffuse 20 and 30% stenoses in the diagonal artery as well as the LAD proper. The circumflex artery Is a large dominant vessel. The first obtuse marginal artery is proximally occluded. 2 large obtuse marginal arteries have mild atheromatous plaque with no evidence of competitive flow or filling from the vein graft The right coronary artery Vestigial with a proximal 80 to 90% stenosis however the vessel was small does not supply any the left ventricle The [place] ventriculogram reveals Hyperdynamic at 75% The left ventricular end-diastolic pressure 20 mmHg
[2021-09-08 14:34] LABS: Microscopic, Urine URINE MICROSCOPIC (MICROSCOPIC)
[2021-09-08 14:47] LABS: Appearance,Urine CLEAR (Clear); Bilirubin,Urine Negative (Negative); Blood, Urine Negative (Negative); Color,Urine YELLOW (Yellow); Glucose,Urine (UA) Negative (Negative); Ketones,Urine Negative (Negative); Leukocyte Esterase,Urine Negative (Negative); Nitrate,Urine Negative (Negative); Protein,Urine Negative (Negative); Specific Gravity, Urine <= 1.005 (1.005-1.030); Urobilinogen,Urine 0.2 EU/dl (0.2)
[2021-09-08 15:27] LABS: Bacteria,Urine 1+ /lpf; RBC,Urine Occasional #/hpf (0-3)
[2021-09-09] VITALS: BP 115/69; PULSE 60; PULSE 66; RESP 16; TEMP 37.2; O2SAT 96
[2021-09-09 04:00] VITALS: BP 125/75; PULSE 70; PULSE 72; RESP 16; TEMP 37; O2SAT 91
[2021-09-09 05:50] VITALS: BMI 38.7
[2021-09-09 06:47] LABS: Basophils # 0.1 K/mm3 (0-0.2); Basophils % 0.9 % (0.1-2.0); Eosinophils # 0.4 K/mm3 (0.0-0.4); Eosinophils % 4.1 % (0.1-12.0); Hematocrit 40.4 % (37.0-47.0); Hemoglobin 12.9 g/dL (12.2-16.2); Lymphocytes # 2.4 K/mm3 (0.7-4.5); Lymphocytes % 24.3 % (10-50); Mean Corpuscular HGB Conc 31.9 g/dL (31.8-35.4); Mean Corpuscular Hemoglobin 29.9 pg (27.0-31.2); Mean Corpuscular Volume 93.8 fl (81-99); Mean Platelet Volume 7.8 fl (7.4-10.4); Monocytes # 0.5 K/mm3 (0.1-1.0); Monocytes % 5.2 % (1.7-9.3); Neutrophils # 6.5 K/mm3 (1.8-7.8); Neutrophils % 65.5 % (37.0-80.0); Platelet Count 454 K/mm3 (142-424); Red Blood Count 4.31 M/mm3 (4.20-5.40); Red Cell Distribution Width 16.3 % (11.5-17.5)
[2021-09-09 06:54] LABS: Chloride 104 mmol/L (98-107); Potassium 4.5 mmoL/L (3.5-5.1); Sodium 135 mmol/L (136-145)
[2021-09-09 06:57] LABS: Anion Gap 8.5 mEq/L (5-15); Blood Urea Nitrogen 10 mg/dl (7-17); Calcium 8.3 mg/dl (8.4-10.2); Carbon Dioxide 27 mmol/L (22.0-30.0); Creatinine Clearance Estimated 100 mL/min (50-200); Estimated Glomerular Filt Rate 56 ml/min (>60); GFR (African American) 68 ML/MIN (>60); Glucose 114 mg/dl (74-100)
--- NOTE | 2021-09-09 10:30 | HMH.PHACLD ---
Patience Shi has received discharge medication counseling on the following medications: PATIENT IS CURRENTLY TAKING ASPIRIN 81 MG DAILY, CARVEDIOL 25 MG BID, AND LOSARTAN 50 MG DAILY. MD STARTING BRILINTA 90 MG BID. ATORVASTATIN WAS CALLED IN BUT PATIENT IS UNABLE TO TAKE DUE TO MUSCLE PAIN. PROJECT ACCOUNT MANAGER TOOK PATIENT OFF STATIN PREVIOUSLY. NOTIFIED FEATHER EDGER. MD TO ADDRESS AT FOLLOW UP IN OFFICE WITH POSSIBLE CHANGE TO [place].
[2021-09-09 13:44] LABS: CATHL Activated Clotting Time 352 SEC (74-125)
== END 2021-09-09 09:16 | disposition home or self-care (01) ==
LOC: CATHLAB 09:28 → 2ND 13:40
PROVIDERS: PCP Nurse Practitioner Family; Visit Provider Internal Medicine
DX: I25.119 Atherosclerotic heart disease of native coronary artery with unspecified angina pectoris (principal); E11.8 Type 2 diabetes mellitus with unspecified complications; E26.9 Hyperaldosteronism, unspecified; I11.0 Hypertensive heart disease with heart failure; I15.2 Hypertension secondary to endocrine disorders; I27.20 Pulmonary hypertension, unspecified; I50.33 Acute on chronic diastolic (congestive) heart failure; I70.201 Unspecified atherosclerosis of native arteries of extremities, right leg; T82.855A Stenosis of coronary artery stent, initial encounter; R94.31 Abnormal electrocardiogram [ECG] [EKG]; Z95.1 Presence of aortocoronary bypass graft; E55.9 Vitamin D deficiency, unspecified; F17.210 Nicotine dependence, cigarettes, uncomplicated; Y83.1 Surgical operation with implant of artificial internal device as the cause of abnormal reaction of the patient, or of later complication, without mention of misadventure at the time of the procedure; I25.708 Atherosclerosis of coronary artery bypass graft(s), unspecified, with other forms of angina pectoris
CPT/HCPCS: 36245; 36415; 75710; 80048; 81001; 85025; 85347; 92928; 93459; 99152; 99153; C1725; C1760; C1769; C1876; C1894; C9600; J1644; Q9967

== ENCOUNTER 2021-09-16 10:58 | Emergency (ER) | payer MEDICARE, MEDICAID, SELFPAY ==
[2021-09-16 10:59] VITALS: BP 137/92; PULSE 86; RESP 18; TEMP 36.7; O2SAT 96; BMI 38.2
--- NOTE | 2021-09-16 11:12 | ECG_ITS ---
APPROVED REPORT Exam: Resting ECG HR:78 bpm ECG Measurements Heart Rate 78 AXES CA 158 P 40 QRSd 102 QRS 63 QT 406 T 118 QTc 462 Conclusion Normal sinus rhythm Nonspecific ST and T wave abnormality Abnormal ECG Electronically signed by : Ronaldo Vitale MD 09/17/2021 09:56:38
--- NOTE | 2021-09-16 11:22 | XR_ITS ---
PROCEDURE: XR CHEST PORTABLE CLINICAL HISTORY: SOA COMPARISON: CR CXR2V XR chest 2V from 10/14/2017 CR CXR2V XR chest 2V from 05/30/[address] abdomen pelvis wo con from 05/30/[address] CHEST WO CON from 02/02/2021 CR XR CHEST 2V from 07/21/2021 FINDINGS: Prior median sternotomy with a sternotomy wire superiorly. Normal heart size. 1.5 cm right lower lobe pulmonary nodule once again noted. Neoplasm is a consideration. Recommend chest CT for more thorough evaluation and to confirm to the previous chest CT of 02/02/2021. No lobar consolidation or collapse. No acute bony abnormalities. IMPRESSION: No acute finding. Indeterminate right lower lobe pulmonary nodule. Suggest chest CT for further evaluation and to compare with the previous chest CT of 02/02/2021 Dictated by: Gelacio Shah MD 09/16/2021 12:01 Gelacio Shah MD in [place] 09/16/2021 12:01
--- NOTE | 2021-09-16 11:31 | PC.NURSE ---
Dr Jensen in room evaluating patient
--- NOTE | 2021-09-16 11:31 | PC.NURSE ---
Dr Jensen at bedside
--- NOTE | 2021-09-16 11:36 | HMH.EDSOB ---
ED Disposition Clinical Impression: Dyspnea Qualifiers: Dyspnea type: dyspnea on exertion Qualified Code(s): R06.00 - Dyspnea, unspecified Disposition: Home, Self-Care Condition on Discharge: Good Instructions: DI for Shortness of Breath Additional Instructions: Please follow up with your clinical practice consultant in clinic today. Please return if symptoms worsen. Please also return if chest pain or any other concerning symptoms. Referrals: Kingsley Stinson MD [Primary Care Provider] - Time of Disposition: 12:40 - Critical Care Critical Care Time: No Attestation: On 09/16/21, the high probability of a clinically significant, sudden or life threatening deterioration of the following system(s) required my full and direct attention, intervention and personal management. The time I documented below is in addition to time spent performing reported procedures but includes the following listed in this critical care notation. Medical Decision Making - Medical Records Medical records reviewed: Yes: I reviewed the patient's medical records. - Neo Inquiry Pt receiving controlled substance: No Vital Signs: 09/16/21 10:59 09/16/21 11:40 09/16/21 12:30 Temperature 98.1 F 98.3 F Temperature Source Oral Oral Pulse Rate 72 83 Pulse Rate [Right Radial] 86 Respiratory Rate 18 18 Blood Pressure 133/82 133/82 Blood Pressure [Left Arm] 137/92 H Blood Pressure Mean [Left Arm] 107 Blood Pressure Source Automatic Cuff Automatic Cuff Blood Pressure Source [Left Arm] Automatic Cuff Blood Pressure Position Sitting Supine Blood Pressure Position [Left Arm] Sitting 02 Sat by Pulse Oximetry 96 94 L Oxygen Delivery Method Room Air Room Air Room Air - Lab Data Lab results reviewed: Yes: I reviewed the patient's lab results. Lab Results 09/16/21 11:10: WBC 8.4, RBC 4.86, Hgb 14.8, Hct 44.6, MCV 91.7, MCH 30.5, MCHC 33.3, RDW 15.7, Plt Count 569 H, MPV 8.1, Neut % (Auto) 66.2, Lymph % (Auto) 21.7, [place] % (Auto) 6.1, Eos % (Auto) 4.5, Baso % (Auto) 1.4, Neut # (Auto) 5.6, Lymph # (Auto) 1.8, [place] # (Auto) 0.5, Eos # (Auto) 0.4, Baso # (Auto) 0.1 09/16/21 11:10: Sodium 137, Potassium 3.4 L, Chloride 99, Carbon Dioxide 29, Anion Gap 12.4, BUN 19 H, Creatinine 1.30 H, Estimated Creat Clear 75, Estimated GFR 41 L, Est GFR ( Amer) 50 L, Glucose 103 H, Calcium 9.6, Total Bilirubin 0.5, AST 29, ALT 18, Alkaline Phosphatase 97, Troponin I < 0.01, Total Protein 7.8, Albumin 4.4, Globulin 3.4 H, Albumin/Globulin Ratio 1.3 Result diagrams: 09/16/21 11:10 09/16/21 11:10 Medical Decision Narrative: Mrs. Chapman is a 61-year-old female with past medical history for DC s/p stents and recent catheterization 4 to 5 days ago who presents to the emergency department for dyspnea. Patient is afebrile and hemodynamically stable on arrival satting well on room air. Patient is breathing comfortably with no increased work of breathing. Bedside ECG shows no acute ischemic changes. ECG and prior cath report is reviewed with Dr. Jensen. Dr. Jensen has evaluated patient and has cleared her for discharge at this time. Patient is discharged in stable condition and informed to go to her cardiology appointment scheduled today. Patient is discharged in stable condition and provided strict return precautions. Resp/SOB HPI - General Chief Complaint: Shortness of Breath/Dyspnea Stated Complaint: weakness Time Seen by Provider: 09/16/21 11:00 Mode of Arrival: Wheelchair Source of Information: Patient Limitations: No Limitations Description of Symptoms (Recalled from ER Triage Doc. by RN): Pt to ED from Dr Jensen's office, where she was scheduled for a f/u appt. Pt c/o increased SOA and diaphoresis over the last few days. Pt states that she had a heart cath with stent placement 4-5 days ago. - History of Present Illness Mrs. Chapman is a 61-year-old female with past medical history for DC s/p stents, recent catheterizing 4 to 5 days ago who presents
[2021-09-16 11:40] VITALS: BP 133/82; PULSE 72; O2SAT 94
[2021-09-16 11:42] LABS: Basophils # 0.1 K/mm3 (0-0.2); Basophils % 1.4 % (0.1-2.0); Eosinophils # 0.4 K/mm3 (0.0-0.4); Eosinophils % 4.5 % (0.1-12.0); Hematocrit 44.6 % (37.0-47.0); Hemoglobin 14.8 g/dL (12.2-16.2); Lymphocytes # 1.8 K/mm3 (0.7-4.5); Lymphocytes % 21.7 % (10-50); Mean Corpuscular HGB Conc 33.3 g/dL (31.8-35.4); Mean Corpuscular Hemoglobin 30.5 pg (27.0-31.2); Mean Corpuscular Volume 91.7 fl (81-99); Mean Platelet Volume 8.1 fl (7.4-10.4); Monocytes # 0.5 K/mm3 (0.1-1.0); Monocytes % 6.1 % (1.7-9.3); Neutrophils # 5.6 K/mm3 (1.8-7.8); Neutrophils % 66.2 % (37.0-80.0); Platelet Count 569 K/mm3 (142-424); Red Blood Count 4.86 M/mm3 (4.20-5.40); Red Cell Distribution Width 15.7 % (11.5-17.5); White Blood Count 8.4 K/mm3 (4.8-10.8)
[2021-09-16 12:04] LABS: Chloride 99 mmol/L (98-107); Sodium 137 mmol/L (136-145)
[2021-09-16 12:05] LABS: Potassium 3.4 mmoL/L (3.5-5.1)
[2021-09-16 12:07] LABS: Alanine Aminotransferase 18 U/L (12-78); Alkaline Phosphatase 97 U/L (38-126); Aspartate Amino Transferase 29 U/L (14-36); Bilirubin,Total 0.5 mg/dl (0.2-1.3); Blood Urea Nitrogen 19 mg/dl (7-17); Creatinine Clearance Estimated 75 mL/min (50-200); Estimated Glomerular Filt Rate 41 ml/min (>60); GFR (African American) 50 ML/MIN (>60)
[2021-09-16 12:08] LABS: Albumin Level 4.4 g/dl (3.5-5.0); Albumin/Globulin Ratio 1.3 (1.1-1.8); Anion Gap 12.4 mEq/L (5-15); Calcium 9.6 mg/dl (8.4-10.2); Carbon Dioxide 29 mmol/L (22.0-30.0); Globulin 3.4 g/dL (1.3-3.2); Glucose 103 mg/dl (74-100); Total Protein,Serum 7.8 g/dl (6.3-8.2)
[2021-09-16 12:22] LABS: Troponin I < 0.01 ng/ml (0.00-0.034)
[2021-09-16 12:30] VITALS: BP 133/82; PULSE 83; RESP 18; TEMP 36.8; O2SAT 95
== END 2021-09-16 12:30 | disposition home or self-care (01) ==
PROVIDERS: Emergency Provider Student in an Organized Health Care Education/Training Program; PCP Emergency Medicine
DX: R06.00 Dyspnea, unspecified (principal); I50.9 Heart failure, unspecified; I25.2 Old myocardial infarction; I10 Essential (primary) hypertension; E11.9 Type 2 diabetes mellitus without complications; F41.8 Other specified anxiety disorders; E78.5 Hyperlipidemia, unspecified; E03.9 Hypothyroidism, unspecified
CPT/HCPCS: 71045; 80053; 84484; 85025; 93005; 99283

== ENCOUNTER → 2021-09-29 13:49 | Outpatient (CLI) | payer MEDICARE, MEDICAID, SELFPAY | PROVIDERS: Visit Provider Nurse Practitioner | DX: Z20.822 Contact with and (suspected) exposure to COVID-19 (principal) | CPT/HCPCS: C9803; U0003; U0005 ==

== ENCOUNTER → 2022-02-09 14:48 | Outpatient (CLI) | payer MEDICARE, MEDICAID, SELFPAY ==
[2022-02-09 12:31] LABS: Alanine Aminotransferase 14 U/L (12-78); Albumin Level 3.9 g/dl (3.5-5.0); Albumin/Globulin Ratio 1.3 (1.1-1.8); Alkaline Phosphatase 115 U/L (38-126); Anion Gap 11.5 mEq/L (5-15); Aspartate Amino Transferase 20 U/L (14-36); Blood Urea Nitrogen 14 mg/dl (7-17); Carbon Dioxide 29 mmol/L (22.0-30.0); Chloride 99 mmol/L (98-107); Chol/HDL Ratio 8.6 (1-3.5); Cholesterol 241 mg/dl (140-200); Estimated Glomerular Filt Rate 41 ml/min (>60); GFR (African American) 50 ML/MIN (>60); Globulin 3.1 g/dL (1.3-3.2); Glucose 101 mg/dl (74-100); HDL Cholesterol 28 mg/dl (40-60); Potassium 3.5 mmoL/L (3.5-5.1); Sodium 136 mmol/L (136-145); Triglycerides 156 mg/dl (30-150); VLDL Cholesterol 31 mg/dL (0-40)
[2022-02-09 12:34] LABS: Basophils # 0.1 K/mm3 (0-0.2); Basophils % 0.9 % (0.1-2.0); Eosinophils # 0.3 K/mm3 (0.0-0.4); Eosinophils % 2.7 % (0.1-12.0); Hematocrit 40.1 % (37.0-47.0); Hemoglobin 13.2 g/dL (12.2-16.2); Lymphocytes # 1.4 K/mm3 (0.7-4.5); Lymphocytes % 13.3 % (10-50); Mean Corpuscular HGB Conc 32.9 g/dL (31.8-35.4); Mean Corpuscular Hemoglobin 30.2 pg (27.0-31.2); Mean Corpuscular Volume 91.6 fl (81-99); Mean Platelet Volume 8.1 fl (7.4-10.4); Monocytes # 0.5 K/mm3 (0.1-1.0); Monocytes % 4.3 % (1.7-9.3); Neutrophils # 8.4 K/mm3 (1.8-7.8); Neutrophils % 78.9 % (37.0-80.0); Platelet Count 553 K/mm3 (142-424); Red Blood Count 4.38 M/mm3 (4.20-5.40); Red Cell Distribution Width 14.1 % (11.5-17.5); White Blood Count 10.6 K/mm3 (4.8-10.8)
[2022-02-09 12:41] LABS: Direct LDL Cholesterol 183.85 mg/dL (100-129)
[2022-02-09 12:47] LABS: 25-OH Vitamin D, Total 33.6 ng/mL (30-100)
[2022-02-09 12:48] LABS: T4 (Thyroxine) 16.6 ug/dl (5.53-11.0)
[2022-02-09 12:52] LABS: Bilirubin,Total < 0.1 mg/dl (0.2-1.3)
[2022-02-09 13:02] LABS: Thyroid Stimulating Hormone 1.02 uIU/mL (0.465-4.68)
[2022-02-09 14:23] LABS: Hemoglobin A1C 5.6 % (4.0-6.0)
== END ==
PROVIDERS: PCP Nurse Practitioner Family; Visit Provider Nurse Practitioner Family
DX: E03.9 Hypothyroidism, unspecified; E11.9 Type 2 diabetes mellitus without complications; E55.9 Vitamin D deficiency, unspecified; I25.10 Atherosclerotic heart disease of native coronary artery without angina pectoris; R53.83 Other fatigue; G47.00 Insomnia, unspecified
CPT/HCPCS: 80053; 80061; 82306; 83036; 84436; 84443; 85025

== ENCOUNTER → 2022-02-24 07:32 | Outpatient (CLI) | payer MEDICARE, MEDICAID, SELFPAY | PROVIDERS: PCP Nurse Practitioner Family; Visit Provider Physician Assistant | DX: R82.90 Unspecified abnormal findings in urine (principal); B96.20 Unspecified Escherichia coli [E. coli] as the cause of diseases classified elsewhere | CPT/HCPCS: 87086; 87088; 87186 ==

== ENCOUNTER → 2022-03-04 11:11 | Outpatient (CLI) | payer MEDICARE, MEDICAID, SELFPAY ==
--- NOTE | 2022-03-04 | CA_ITS ---
APPROVED REPORT Exam: Pharmacologic Technologist: Tonja Juarez, Ht: 5 ft 6 in Wt: 225 lbs BSA: 2.10 m2 HR: 61 bpm BP: 105/62 mmHg Rhythm: NSR Medical History Medical History: HTN, Hyperlipidemia, , Diabetes Medications: Omeprazole,,,,, Levothyroxine,,,,, Aspirin,,,,, Gabapentin,,,,, Losartan,,,,, Carvedilol,,,,, Sucralfate,,,,, Plavix,,,,, Cyclobenzaprine,,,,, DilTiazem,,,,, Hydroxyzine,,,,, [place],,,,, Allergies: ATORVASTATIN Cardiac Risk Factors: HTN, Hyperlipidemia, Diabetes, FHX of CAD, Smoking Stress Test Details Test: LEXISCAN HR Resting HR: 55 bpm Max Heart Rate (APMHR): 157.483620 bpm Max HR Achieved: 93 bpm Target HR (85% APMHR): 133.607461 bpm % of APMHR: 59.24 BP Resting BP: 105/62 mmHg Max BP: 135/90 mmHg Recovery BP: 135.0/90.0 mmHg ECG Resting ECG: NSR Clinical Reason for Termination: Completed Protocol Exercise duration: 04:01 min Highest Stage Achieved: Exercise capacity: 1.0 METs Stress ECG Conclusion NO CP. <1.[address] SEGMENT CHANGES NON DIAGNOSTIC Test Summary REST 10:05 . . 55 . 105/ 62 . . Stage 1 01:00 . . 80 . . . . Stage 2 01:00 . . 85 . 114/ 77 . . Stage 3 01:00 . . 57 . 128/ 80 . . Stage 4 01:00 . . 93 . . . . Stage 4 01:01 . . 93 . . . Stop exercise at 04:01 RECOVERY 01:00 . . 90 . . . . RECOVERY 02:00 . . 73 . . . . RECOVERY 02:35 . . 70 . 135/ 90 . . Electronically signed by : Gray Coker MD 03/04/2022 15:55:14
--- NOTE | 2022-03-04 11:18 | NM_ITS ---
APPROVED REPORT Exam: Nuclear Stress Test Indication: short of breath..palpitations..fatigue Patient Location: Outpatient Stress Tech: Tonja Juarez HI Tech:Patricia Gonsales ZOHAIBTres RT(R)(N) Ht: 5 ft 6 in Wt: 227 lbs Bra Size: 46c HR: 55 bpm BP: 105/62 mmHg BSA: 2.11 m2 TID: 1.41 BMI: 36.6 History: short of breath..palpitations..fatigue Procedure: Patient received a 0.4 mg of intravenous Lexiscan, resting heart rate 55 bpm, resting blood pressure 105/62 mmHg, with Lexiscan maximum heart rate achived was 93 bpm which is Less than 85 % of the maximum predicted heart rate and blood pressure was 135/90 mmHg. With Lexiscan, patient denied any complaint of chest pain. The patient was unable to lay on her belly for prone images. Electrocardiogram Resting electrocardiogram shows sinus rhythm, with Lexiscan there is less than 1.[address] segment depression noted from the baseline EKG. The EKG portion of the Lexiscan is nondiagnostic. Cardiac Stress and Resting SPECT Images: Cardiac Stress and Resting SPECT images were obtained using technetium 99m Myoview 32.9 mCi stress and 10.39 mCi at rest. Gated SPECT analysis of segmental wall motion and calculation of the ejection fraction also done. Prone images were not obtained. Cardiac stress and rest SPECT images show a mild fixed defect in the anterior wall with normal contractility on gated SPECT is likely secondary to soft tissue attenuation, no reversible ischemia seen, however there is transient ischemic dilatation of the left ventricle seen, raising the concern for presence of balanced ischemia. Computer derived ejection fraction is 62% with no regional wall motion abnormality, right ventricle is mildly enlarged with normal contractility. Conclusion: 1. The EKG portion of the Lexiscan is nondiagnostic. 2. No scintigraphic evidence of reversible ischemia seen, compared right ejection fraction is 62% with no regional wall motion abnormality, right ventricle is mildly enlarged with normal contractility. There is transient ischemic dilatation of the left ventricle seen, raising the concerns for presence of balanced ischemia, other causes for transient ischemic dilatation include elevated left ventricular end-diastolic pressure, diabetes mellitus, hypertensive heart disease and microvascular disease. 3. Abnormal Lexiscan Myoview study, clinical correlation is recommended Electronically signed by : Gray Coker MD 03/04/2022 16:00:34
== END ==
PROVIDERS: PCP Nurse Practitioner Family; Visit Provider Physician Assistant
DX: Z95.1 Presence of aortocoronary bypass graft; I20.8 Other forms of angina pectoris
CPT/HCPCS: 78452; 93017; A9502; J0280; J2785

== ENCOUNTER → 2022-03-14 16:41 | Outpatient (CLI) | payer MEDICARE, MEDICAID, SELFPAY ==
[2022-03-14 17:32] LABS: Basophils # 0.1 K/mm3 (0-0.2); Basophils % 1.2 % (0.1-2.0); Eosinophils # 0.3 K/mm3 (0.0-0.4); Eosinophils % 3.4 % (0.1-12.0); Hematocrit 37.5 % (37.0-47.0); Hemoglobin 11.6 g/dL (12.2-16.2); Lymphocytes # 2.1 K/mm3 (0.7-4.5); Lymphocytes % 28.3 % (10-50); Mean Corpuscular Hemoglobin 29.2 pg (27.0-31.2); Mean Corpuscular Volume 94.1 fl (81-99); Mean Platelet Volume 7.8 fl (7.4-10.4); Monocytes # 0.5 K/mm3 (0.1-1.0); Monocytes % 6.3 % (1.7-9.3); Neutrophils # 4.4 K/mm3 (1.8-7.8); Neutrophils % 60.8 % (37.0-80.0); Platelet Count 440 K/mm3 (142-424); Red Blood Count 3.98 M/mm3 (4.20-5.40); Red Cell Distribution Width 14.2 % (11.5-17.5); White Blood Count 7.3 K/mm3 (4.8-10.8)
[2022-03-14 18:17] LABS: Anion Gap 9.9 mEq/L (5-15); Blood Urea Nitrogen 8 mg/dl (7-17); Calcium 8.7 mg/dl (8.4-10.2); Carbon Dioxide 31 mmol/L (22.0-30.0); Chloride 99 mmol/L (98-107); Estimated Glomerular Filt Rate 56 ml/min (>60); GFR (African American) 68 ML/MIN (>60); Glucose 85 mg/dl (74-100); Potassium 3.9 mmoL/L (3.5-5.1); Sodium 136 mmol/L (136-145)
== END ==
PROVIDERS: PCP Emergency Medicine; Visit Provider Nurse Practitioner Family
DX: E26.9 Hyperaldosteronism, unspecified (principal); F17.200 Nicotine dependence, unspecified, uncomplicated; I27.20 Pulmonary hypertension, unspecified; I50.9 Heart failure, unspecified; R06.00 Dyspnea, unspecified; R60.0 Localized edema; Z95.1 Presence of aortocoronary bypass graft; Z01.812 Encounter for preprocedural laboratory examination; Z20.822 Contact with and (suspected) exposure to COVID-19; I20.8 Other forms of angina pectoris
CPT/HCPCS: 36415; 80048; 85025; C9803; U0003; U0005

== ENCOUNTER 2022-03-15 08:26 | Day surgery (SDC) | payer MEDICARE, MEDICAID, SELFPAY ==
[2022-03-15] VITALS (10 sets, daily range): BP systolic 86–113; BP diastolic 37–57; PULSE 42–50; RESP 16–20; O2SAT 90–100; BMI 36.8
--- NOTE | 2022-03-15 | IR_ITS ---
APPROVED REPORT Patient Location: Outpatient Corn Shucker: BARTOLOME Briceno RT (R) PROCEDURES Left heart catheterization Left ventriculogram Selective coronary angiogram Left internal mammary angiography Selective engagement of saphenous vein graft to the ramus intermedius Catheter placement in the right common iliac artery with retrograde angiography INDICATION Coronary artery disease, Abnormal Myoview, History of coronary bypass surgery, Peripheral artery disease Informed consent was obtained prior to the procedure. COMPLICATIONS None Estimated Blood Loss: Less than 10 mls TECHNIQUE One percent lidocaine used to anesthetize the right groin. The right femoral artery was accessed via the Seldinger technique and a 5 Nepali sheath was placed in the right femoral artery. A JL 4, JR4 catheter were used to perform left heart catheterization, left ventriculogram selective coronary angiography as well as selective engagement of the 1 vein graft and the left internal mammary artery. At the end of the procedure the patient was transferred to the postop holding area in stable condition for sheath removal. ANGIOGRAPHIC RESULTS The left main artery Has a stent in the ostial proximal segment which is widely patent. The midportion has a minimal eccentric 10% stenosis The left anterior descending artery Has an ostial 50% stenosis and then is occluded at mid vessel The circumflex artery Is a dominant system. The ramus intermedius her first obtuse marginal artery is proximally subtotally occluded with evidence of competitive flow. The remaining circumflex artery has mild atheromatous plaque The right coronary artery Is a small nondominant small calibered vessel with diffuse 30 to 40% stenoses The MONROE ventriculogram reveals Slightly reduced at 45 to 50% The left ventricular end-diastolic pressure 20 mmHg MORTENSEN to LAD is patent Saphenous vein graft to ramus intermedius is patent Right common internal and external iliac arteries are patent with mild diffuse atheromatous plaque. The right common femoral artery has a calcified 50% stenosis at the insertion site IMPRESSION Patent coronary arteries as described above Elevated LVEDP which is likely etiology for the transient ischemic dilatation Peripheral artery disease as described above PLAN 1. Medical management 2. Risk factor modification Electronically signed by : Randy Jensen MD 03/15/2022 13:52:07
== END 2022-03-15 13:54 | disposition hospice, home (50) ==
LOC: CATHLAB 08:28
PROVIDERS: PCP Nurse Practitioner Family; Visit Provider Internal Medicine
DX: I25.118 Atherosclerotic heart disease of native coronary artery with other forms of angina pectoris (principal); Z95.1 Presence of aortocoronary bypass graft; Z79.899 Other long term (current) drug therapy; I25.708 Atherosclerosis of coronary artery bypass graft(s), unspecified, with other forms of angina pectoris; I27.20 Pulmonary hypertension, unspecified; I50.32 Chronic diastolic (congestive) heart failure; F17.210 Nicotine dependence, cigarettes, uncomplicated; I11.0 Hypertensive heart disease with heart failure; E11.9 Type 2 diabetes mellitus without complications; E03.9 Hypothyroidism, unspecified
CPT/HCPCS: 93459; 99152; C1725; C1769; C1894; J1644; Q9967

== ENCOUNTER → 2022-04-20 06:24 | Outpatient (CLI) | payer MEDICARE, MEDICAID, SELFPAY ==
[2022-04-19 19:01] LABS: Microscopic, Urine URINE MICROSCOPIC (MICROSCOPIC)
[2022-04-19 19:06] LABS: Appearance,Urine SL CLOUDY (Clear); Bilirubin,Urine Negative (Negative); Blood, Urine Negative (Negative); Glucose,Urine (UA) Negative (Negative); Ketones,Urine Negative (Negative); Leukocyte Esterase,Urine 2+ (Negative); Nitrate,Urine Negative (Negative); Protein,Urine Negative (Negative); Urobilinogen,Urine 0.2 EU/dl (0.2)
[2022-04-19 19:11] LABS: Color,Urine Straw (Yellow)
[2022-04-19 19:22] LABS: Bacteria,Urine Trace /lpf; RBC,Urine Occasional #/hpf (0-3); Squamous Epithelial Cell,Urine Occasional #/hpf (0-5); WBC,Urine 20-50 #/hpf (0-3)
== END ==
PROVIDERS: Visit Provider Physician Assistant
DX: N39.0 Urinary tract infection, site not specified (principal); B96.29 Other Escherichia coli [E. coli] as the cause of diseases classified elsewhere
CPT/HCPCS: 81001; 87086; 87088; 87186

== ENCOUNTER → 2022-04-29 08:21 | Outpatient (CLI) | payer MEDICARE, MEDICAID, SELFPAY ==
--- NOTE | 2022-04-29 08:21 | CT_ITS ---
FINAL REPORT TECHNIQUE: Axial images through the abdomen and pelvis were performed without contrast. This study was performed with techniques to keep radiation doses as low as reasonably achievable, (ALARA). Individualized dose reduction techniques using automated exposure control or adjustment of mA and/or kV according to the patient's size were employed. CLINICAL HISTORY: adrenal adenoma COMPARISON: 02/02/2021 and 05/30/2018 FINDINGS: ABDOMEN: There is a 21 mm nodule in the right lung base which is stable since prior CT dated 02/02/2021. There is mild scarring in the right lung base. The heart size is normal. Limited images of the liver are unremarkable. The patient is status post cholecystectomy. The spleen is normal. There is an 18 mm right adrenal nodule which is stable since exam dated 02/02/2021, likely represents an adenoma. There is a right common iliac artery stent. The aorta is normal in caliber. There is no significant free fluid or adenopathy. There is no nephrolithiasis. There is no hydronephrosis. PELVIS: The appendix is normal. The urinary bladder is unremarkable. There is no significant free fluid or adenopathy. IMPRESSION: Right lung base nodule, stable. Stable right adrenal nodule, likely represents an adenoma. Reviewed, Interpreted and Dictated by Truman Alves III, MD Transcribed by Carmina Hernandez Authenticated and [facility]
== END ==
PROVIDERS: Visit Provider Physician Assistant
DX: D35.00 Benign neoplasm of unspecified adrenal gland (principal); B96.20 Unspecified Escherichia coli [E. coli] as the cause of diseases classified elsewhere; N39.0 Urinary tract infection, site not specified
CPT/HCPCS: 74176; 87086